=== PATIENT | male | born 1980 | race Caucasian/White ===

== ENCOUNTER → 2018-02-26 10:36 | Outpatient (REF) | payer MEDICAID, SELFPAY ==
[2018-02-26 12:00] LABS: ALT 35 U/L (12-78); AST 29 U/L (15-37); Albumin 3.8 g/dL (3.4-5.0); Alkaline Phosphatase 89 U/L (46-116); Anion Gap 9.3 mmol/L (3-11); BUN 23 mg/dL (7-18); Bilirubin, Total 0.4 mg/dL (0.2-1.0); CO2 26.7 mmol/L (21.0-32.0); CREATININE 1.33 mg/dL (0.70-1.30); Chloride 101 mmol/L (98-107); Glucose 117 mg/dL (70-100); Potassium 4.5 mmol/L (3.5-5.1); Sodium 137 mmol/L (136-145); Total Protein 7.7 g/dL (6.4-8.2)
[2018-03-02 16:17] LABS: Testosterone, Free 7.38 ng/dL (4.65-18.1); Testosterone, Total 321 ng/dL (240-950)
== END ==
LOC: NCHCN 10:36
PROVIDERS: PCP Family Medicine; Visit Provider Family Medicine
DX: E29.1 Testicular hypofunction (principal); R61 Generalized hyperhidrosis
CPT/HCPCS: 80053; 84402; 84403

== ENCOUNTER 2018-12-01 15:37 | Emergency (ER) | payer MEDICAID, SELFPAY ==
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
[2018-12-01 15:55] VITALS: BP 143/85; PULSE 90; RESP 30; O2SAT 94
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
[2018-12-01 16:09] LABS: Absolute Basophil Count 0.08 k/cumm (0.0-0.2); Absolute Eosinophil Count 0.28 k/cumm (0.0-0.7); Absolute Lymphocyte Count 3.57 k/cumm (1.2-3.4); Absolute Monocyte Count 1.64 k/cumm (0.11-0.7); Absolute Neutrophil Count 10.07 k/cumm (1.2-6.7); Basophils % 0.5; Eosinophils % 1.8; HCT 40.7 % (40.0-50.0); HGB 14.1 g/dL (13.5-17.5); Immature Grans % 0.6; Lymphocytes % 22.7; Mean Corp. HGB Concentration 34.6 g/dL (32.0-36.0); Mean Corpuscular Hemoglobin 32.2 pg (27.0-33.0); Mean Corpuscular Volume 92.9 fL (80-95); Mean Platelet Volume 9.4 fL (8.0-11.0); Monocytes % 10.4; Platelet Count 327 x1000/uL (130-400); RBC 4.38 m/cumm (4.50-6.00); RBC Distribution Width 13.8 % (11.8-14.1); White Blood Cell Count 15.74 k/cumm (4.4-10.8)
[2018-12-01 16:24] LABS: ALT 36 U/L (12-78); AST 34 U/L (15-37); Albumin 3.4 g/dL (3.4-5.0); Alkaline Phosphatase 66 U/L (46-116); Anion Gap 8.4 mmol/L (3-11); BUN 11 mg/dL (7-18); Bilirubin, Total 0.2 mg/dL (0.2-1.0); CO2 26.6 mmol/L (21.0-32.0); Calcium 8.6 mg/dL (8.5-10.1); Chloride 106 mmol/L (98-107); Glucose 81 mg/dL (70-100); Potassium 3.7 mmol/L (3.5-5.1); Sodium 141 mmol/L (136-145); Total Protein 6.9 g/dL (6.4-8.2)
[2018-12-01 16:25] LABS: INR 1.7 (0.9-1.1); Prothrombin Time 17.1 sec (9.3-11.0)
[2018-12-01 16:28] LABS: Diff Comment Diff Reviewed
[2018-12-01 16:29] LABS: Acanthocytes 1+; Polychromasia Present
[2018-12-01 16:30] VITALS: BP 146/81; PULSE 93; O2SAT 94
[2018-12-01] MEDS: Omnipaque 350 MG/ML 100 ML BTL IJ (16:41)
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
[2018-12-01 18:07] LABS: Bilirubin Negative (Negative); Blood Trace-lysed (Negative); Clarity Clear; Glucose Negative (Negative); Ketones Negative (Negative); Leukocyte Esterase Negative (Negative); Nitrite Negative (Negative); Urobilinogen 0.2 EU/dL (Up TO 0.2); pH 5.5 (5-8)
[2018-12-01 18:17] LABS: Bacteria Negative HPF (Negative); C & S Indicated? No; Casts Negative LPF (Negative); Crystals Negative HPF (Negative); Epithelial Cells Rare HPF (Negative); Mucus Negative (Negative); WBC Negative HPF (0-5)
== END 2018-12-01 21:30 | disposition home or self-care (01) ==
PROVIDERS: Emergency Provider Student in an Organized Health Care Education/Training Program; PCP Family Medicine
DX: S19.9XXA Unspecified injury of neck, initial encounter (principal); S20.212A Contusion of left front wall of thorax, initial encounter; F10.120 Alcohol abuse with intoxication, uncomplicated; S60.052A Contusion of left little finger without damage to nail, initial encounter; Z79.01 Long term (current) use of anticoagulants; Z95.2 Presence of prosthetic heart valve
CPT/HCPCS: 36415; 70498; 80053; 86850; 86900; 86901; 90471; 93005; 99285; 70450; 71046; 71100; 73140; 81003; 81015; 85025; 85610; 93010; 99284; J3490; L0172

== ENCOUNTER 2019-01-20 17:09 | Emergency (ER) | payer MEDICAID, SELFPAY ==
[2019-01-20] VITALS (19 sets, daily range): BP systolic 95–125; BP diastolic 47–76; PULSE 86–114; RESP 16–38; TEMP 38.1; O2SAT 88–95
--- NOTE | 2019-01-20 17:25 | DI.RAD_ITS ---
SYMPTOM/DIAGNOSIS: ? ASPIRATION, HYPOXIA, RHONCHI PORTABLE AP CHEST: The lungs are free of infiltrate. The heart is not enlarged. The hilar structures, mediastinum and tracheal air column are intact. SUMMARY: No evidence of acute cardiopulmonary disease.
[2019-01-20] MEDS: ACETAMINOPHEN 1,000 MG/100 ML BTL 400 MG IVPB (17:40)
[2019-01-20] MEDS: Normal Saline 1,000 ML 1000 ML IV (17:51)
--- NOTE | 2019-01-20 18:03 | W.ED.GENAD ---
Discharge Plan Disposition Patient Disposition: AGAINST MEDICAL ADVICE Condition: Poor Discharge Details Chief Complaint: OD/Poison Clinical Impression: History of drug abuse, Accidental heroin overdose, Hypoxemia Primary Care Provider: Radha Tracey ED Provider: Wil Gonzalez Home Meds and New Rx's Prescriptions: No Action warfarin 10 MG tablet 15 mg PO DAILY RF: 0 sertraline 100 MG tablet 100 mg PO DAILY RF: 0 gabapentin 300 MG capsule 900 mg PO TID RF: 0 albuterol sulfate [ProAir HFA] 200 PUFF/INH HFA aerosol inhaler 2 puff Inhalation Q4H PRN PRNQty: 1 RF: 0 Narcan 4 MG spray,non-aerosol 4 mg NS DIRECTED Qty: 2 RF: 0 albuterol sulfate [Ventolin HFA] 200 PUFF HFA aerosol inhaler 2 inh Inhalation Q4H PRN PRNRF: 0 buprenorphine-naloxone [Suboxone] 4-1 mg Film 4 film Sublingual DAILY AM RF: 0 Discharge Data Discharge Date/Time-TO BE ENTERED AT DEPARTURE: 01/20/19 18:54 Medical Decision Making This is a 38-year-old male with extensive past medical history of drug abuse, pulmonary emboli, 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 He has had cough chills over the last 2 days, he overdosed today on heroin, this was unintentional, and he denies any suicidal ideations, required 8 of Narcan to come back, lowest O2 was 60%. Eventually came back with [id number], lung sounds are notably rhonchorous, concern for aspiration pneumonia. The patient is febrile, tachycardic. He does smell intoxicated and is certainly acting intoxicated. Exam demonstrates no focal neurologic deficit, rhonchorous breath sounds, hypoxia and tachycardia with fever. We will start broad-spectrum antibiotics. He does complain of mild left arm weakness, however he is notably noncompliant with exam secondary to his current mood and disposition. He refuses to perform my complete neurologic exam even though he does demonstrate movement of his extremities and when flailing about or pointing at nursing staff. We will get a CT scan of the head, CTA of the chest, start broad-spectrum antibiotics, rehydrate, maintain oxygen. 8 PM Fortunately the patient has left AGAINST MEDICAL ADVICE. While I was in another patient's room performing a sterile procedure the patient upon himself to remove his IVs, and leave. Multiple steps of reasoning and redirection were attempted by nursing staff as well as Jyoti Waterman, however the patient made it exquisitely clear to them that he would not be staying, he needed to leave immediately. He did not give a clear answer why. At time of patient leaving, he clinically appears sober with no clinical signs of intoxication per nursing staff at that time. After I did complete my procedure I was informed that the patient had left, we did attempt to contact the patient however all attempt to contact were answered. Prior to the patient leaving we did demonstrate her recorded vital signs of notable improvement of his oxygenation. And her nursing staff did assist the patient immediately prior to when he left he had noted a significant improvement in his respiratory status. Showed no signs of significant confusion or altered mental status per nursing staff. EKG 7: 24 Rate 102, HI 220 with a first-degree AV block, QTc 443, sinus tachycardia, QRS 90. No significant ST elevations or depressions, no significant T wave inversions. No Q waves. HPI General Date/Time Provider Initiated Documentation: 01/20/19 17:23. HPI Narrative: This is a 38-year-old male with an extensive past medical history of drug use, DIC, endocarditis, brain abscesses, septic arterial emboli, on chronic Coumadin, cardiac valve replacement secondary to endocarditis, who presents today for evaluation of overdose, difficulty breathing. Patient states that over the last few days he has had cough, shortness of breath, today he overdosed on heroin, bystanders and medical staff were giving him bag valve respirations, he was initially given 4 by fire and police, and then an additional 4 by EMS staff for a total of 8. He eventually woke up, and had return to mentation and breathing. Patient also does admit to significant alcohol intake recently. He admits to mild chest pain with associated shortness of breath. He did admit to vomiting earlier today and last night. EMS does note rhonchorous breath sounds. Initial O2 was 60% in the field, however he is currently at 98% on 15 L. Patient is a notably poor historian, and is confrontational with nursing staff. He has no other complaints at this time though. Related Data Home Medications Medication Instructions Recorded Confirmed warfarin 15 mg PO DAILY 02/16/16 01/20/19 gabapentin 900 mg PO TID 04/02/16 01/20/19 sertraline 100 mg PO DAILY 04/02/16 01/20/19 albuterol sulfate [Ventolin HFA] 2 inh INHALATION Q4H PRN PRN 06/24/16 01/20/19 albuterol sulfate [ProAir HFA] 2 puff INHALATION Q4H PRN PRN #1 01/03/18 01/20/19 inh Narcan 4 mg NS DIRECTED #2 spray 01/13/18 01/20/19 buprenorphine-naloxone [Suboxone] 4 film SUBLINGUAL DAILY AM 12/01/18 01/20/19 Previous Rx's Medication Instructions Recorded albuterol sulfate [ProAir HFA] 2 puff INHALATION Q4H PRN PRN #1 01/03/18 inh Narcan 4 mg NS DIRECTED #2 spray 01/13/18 Allergies Allergy/AdvReac Type Severity Reaction Status Date / Time Penicillins Allergy Unknown tolerating Unverified 12/01/18 16:32 Oxacillin this admission 06/24/16 per latex Allergy Unverified 12/01/18 16:32 General Stated Complaint: OD/Poison JEREMIAS: 2 Review of Systems Review of Systems All systems reviewed & are unremarkable except as noted in HPI and below PFSH Social History Smoking/Tobacco Use Status: Current every day Tobacco Type: cigarettes Alcohol Intake: current Alcohol Intake frequency: 0-2 drinks per day Drug use: Daily Substance use type: opiates Details: pt ran out of antibuse and drank today Do you feel safe at home: Yes Do you feel safe in your relationship?: Yes Exam Narrative Exam Narrative: 1.Const: Well-nourished, Well-developed, appearing stated age 2.Eyes: PERRL, no conjunctival injection, and symmetrical lids. 3.ENT: Atraumatic external nose and ears. Moist MM. Neck: Symmetric, trachea midline, No thyromegaly. Patient demonstrates good movement of cervical neck. There is no nuchal rigidity, no nuchal tenderness. Patient is able to flex the neck without any difficulty or significant pain. Negative Kernig's and Brudzinski sign. 4.CVS: +S1/S2, mild murmur is notably auscultate peripheral pulses 2+ and equal in all extremities. Brisk capillary refill in all extremities. 5.RESP: Rhonchorous breath sounds, no wheezes, crackles in the bases and midlung neal 6.GI: Soft, Nontender/Nondistended, No hepatosplenomegaly. No guarding or rebound. 7.MSK: Normocephalic/Atraumatic, Extremities w/o deformity or ttp No cyanosis or clubbing, Normal movement of all extremities 8.Skin: Warm, Dry. No rashes or lesions. No Osler nodes or Janeway lesions. 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 Sensation grossly intact, no focal neurologic deficits. Patient moves all extremities without any significant difficulty. Exam is complicated secondary to the patient's intoxication and confrontational component coupled with his refusal to perform requested exam movements secondary to personal wishes. Observing the patient from a distance so he appears to use all upper and lower extremities well. He demonstrates good indirect sales representative of the bed handles bilaterally. He shows no facial droop. 10.Psych: (AAO) x3. Mildly intoxicated Course Vital Signs Respiratory Rate 21 01/20/19 17:12 Pulse Oximetry 88 L 01/20/19 17:12 Temperature 38.1 C H 01/20/19 17:17 Temperature Source Tympanic 01/20/19 17:17 Pulse 99 H 01/20/19 17:46 Pulse 104 H 01/20/19 17:46 Respiratory Rate 20 01/20/19 17:46 Respiratory Effort Labored 01/20/19 17:23 Respiratory Depth Shallow 01/20/19 17:23 Respiratory Pattern Tachypnea 01/20/19 17:23 Blood Pressure 95/47 L 01/20/19 17:46 Blood Pressure Mean 59 01/20/19 17:46 Pulse Oximetry 91 L 01/20/19 17:46 Oxygen Delivery Method Hi Flow System 01/20/19 17:43 Oxygen Flow Rate 40 01/20/19 17:43 Fraction of Inspired Oxygen (FIO2) 46 01/20/19 17:43 Pain Level 0 01/20/19 17:17 Comment 01/20/19 17:43 Lab/Test Results Lab/Test Results: 01/20/19 17:25 Blood Blood Culture - Pending 01/20/19 17:25 Blood Blood Culture - Pending
[2019-01-20 18:12] LABS: BE -0.7 mmol/L (-3-3); HCO3 25 mmol/L (22-28); pCO2 43 mmHg (34-47); pH 7.37 (7.35-7.45); pO2 65 mmHg (83-108); sO2 94 % (94-98); tCO2 22 mmol/L (22-29)
[2019-01-20 18:13] LABS: Site Right Radial
[2019-01-20 18:14] LABS: FIO2 36 %
--- NOTE | 2019-01-20 18:15 | ED.GENADUL_ITS ---
Discharge Plan Disposition Patient Disposition: AGAINST MEDICAL ADVICE Condition: Poor Discharge Details Chief Complaint: OD/Poison Clinical Impression: History of drug abuse, Accidental heroin overdose, Hypoxemia Primary Care Provider: Radha Tracey ED Provider: Wil Gonzalez Home Meds and New Rx's Prescriptions: No Action warfarin 10 MG tablet 15 mg PO DAILY RF: 0 sertraline 100 MG tablet 100 mg PO DAILY RF: 0 gabapentin 300 MG capsule 900 mg PO TID RF: 0 albuterol sulfate [ProAir HFA] 200 PUFF/INH HFA aerosol inhaler 2 puff Inhalation Q4H PRN PRNQty: 1 RF: 0 Narcan 4 MG spray,non-aerosol 4 mg NS DIRECTED Qty: 2 RF: 0 albuterol sulfate [Ventolin HFA] 200 PUFF HFA aerosol inhaler 2 inh Inhalation Q4H PRN PRNRF: 0 buprenorphine-naloxone [Suboxone] 4-1 mg Film 4 film Sublingual DAILY AM RF: 0 Discharge Data Discharge Date/Time-TO BE ENTERED AT DEPARTURE: 01/20/19 18:54 Medical Decision Making This is a 38-year-old male with extensive past medical history of drug abuse, pulmonary emboli, 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 He has had cough chills over the last 2 days, he overdosed today on heroin, this was unintentional, and he denies any suicidal ideations, required 8 of Narcan to come back, lowest O2 was 60%. Eventually came back with [id number], lung sounds are notably rhonchorous, concern for aspiration pneumonia. The patient is febrile, tachycardic. He does smell intoxicated and is certainly acting intoxicated. Exam demonstrates no focal neurologic deficit, rhonchorous breath sounds, hypoxia and tachycardia with fever. We will start broad-spectrum antibiotics. He does complain of mild left arm weakness, however he is notably noncompliant with exam secondary to his current mood and disposition. He refuses to perform my complete neurologic exam even though he does demonstrate movement of his extremities and when flailing about or pointing at nursing staff. We will get a CT scan of the head, CTA of the chest, start broad- spectrum antibiotics, rehydrate, maintain oxygen. 8 PM Fortunately the patient has left AGAINST MEDICAL ADVICE. While I was in another patient's room performing a sterile procedure the patient upon himself to remove his IVs, and leave. Multiple steps of reasoning and redirection were attempted by nursing staff as well as Jyoti Waterman, however the patient made it exquisitely clear to them that he would not be staying, he needed to leave immediately. He did not give a clear answer why. At time of patient leaving, he clinically appears sober with no clinical signs of intoxication per nursing staff at that time. After I did complete my procedure I was informed that the patient had left, we did attempt to contact the patient however all attempt to contact were answered. Prior to the patient leaving we did demonstrate her recorded vital signs of notable improvement of his oxygenation. And her nursing staff did assist the patient immediately prior to when he left he had noted a significant improvement in his respiratory status. Showed no signs of significant confusion or altered mental status per nursing staff. EKG 7: 24 Rate 102, CO 220 with a first-degree AV block, QTc 443, sinus tachycardia, QRS 90. No significant ST elevations or depressions, no significant T wave inversions. No Q waves. HPI General Date/Time Provider Initiated Documentation: 01/20/19 17:23 . HPI Narrative: This is a 38-year-old male with an extensive past medical history of drug use, DIC, endocarditis, brain abscesses, septic arterial emboli, on chronic Coumadin, cardiac valve replacement secondary to endocarditis, who presents today for evaluation of overdose, difficulty breathing. Patient states that over the last few days he has had cough, shortness of breath, today he overdosed on heroin, bystanders and medical staff were giving him bag valve respirations, he was initially given 4 by fire and police, and then an additional 4 by EMS staff for a total of 8. He eventually woke up, and had return to mentation and breathing. Patient also does admit to significant alcohol intake recently. He admits to mild chest pain with associated shortness of breath. He did admit to vomiting earlier today and last night. EMS does note rhonchorous breath sounds. Initial O2 was 60% in the field, however he is currently at 98% on 15 L. Patient is a notably poor historian, and is confrontational with nursing staff. He has no other complaints at this time though. Related Data Home Medications Medication Instructions Recorded Confirmed warfarin 15 mg PO DAILY 02/16/16 01/20/19 gabapentin 900 mg PO TID 04/02/16 01/20/19 sertraline 100 mg PO DAILY 04/02/16 01/20/19 albuterol sulfate [Ventolin HFA] 2 inh INHALATION Q4H PRN PRN 06/24/16 01/20/19 albuterol sulfate [ProAir HFA] 2 puff INHALATION Q4H PRN PRN #1 01/03/18 01/20/19 inh Narcan 4 mg NS DIRECTED #2 spray 01/13/18 01/20/19 buprenorphine-naloxone [Suboxone] 4 film SUBLINGUAL DAILY AM 12/01/18 01/20/19 Previous Rx's Medication Instructions Recorded albuterol sulfate [ProAir HFA] 2 puff INHALATION Q4H PRN PRN #1 01/03/18 inh Narcan 4 mg NS DIRECTED #2 spray 01/13/18 Allergies Allergy/AdvReac Type Severity Reaction Status Date / Time Penicillins Allergy Unknown tolerating Unverified 12/01/18 16:32 Oxacillin this admission 06/24/16 per latex Allergy Unverified 12/01/18 16:32 General Stated Complaint: OD/Poison JEREMIAS: 2 Review of Systems Review of Systems All systems reviewed & are unremarkable except as noted in HPI and below PFSH Social History Smoking/Tobacco Use Status: Current every day Tobacco Type: cigarettes Alcohol Intake: current Alcohol Intake frequency: 0-2 drinks per day Drug use: Daily Substance use type: opiates Details: pt ran out of antibuse and drank today Do you feel safe at home: Yes Do you feel safe in your relationship?: Yes Exam Narrative Exam Narrative: 1.Const: Well-nourished, Well-developed, appearing stated age 2.Eyes: PERRL, no conjunctival injection, and symmetrical lids. 3.ENT: Atraumatic external nose and ears. Moist MM. Neck: Symmetric, trachea midline, No thyromegaly. Patient demonstrates good movement of cervical neck. There is no nuchal rigidity, no nuchal tenderness. Patient is able to flex the neck without any difficulty or significant pain. Negative Kernig's and Brudzinski sign. 4.CVS: +S1/S2, mild murmur is notably auscultate peripheral pulses 2+ and equal in all extremities. Brisk capillary refill in all extremities. 5.RESP: Rhonchorous breath sounds, no wheezes, crackles in the bases and midlung neal 6.GI: Soft, Nontender/Nondistended, No hepatosplenomegaly. No guarding or rebound. 7.MSK: Normocephalic/Atraumatic, Extremities w/o deformity or ttp No cyanosis or clubbing, Normal movement of all extremities 8.Skin: Warm, Dry. No rashes or lesions. No Osler nodes or Janeway lesions. 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 Sensation grossly intact, no focal neurologic deficits. Patient moves all extremities without any significant difficulty. Exam is complicated secondary to the patient's intoxication and confrontational component coupled with his refusal to perform requested exam movements secondary to personal wishes. Observing the patient from a distance so he appears to use all upper and lower extremities well. He demonstrates good meat and seafood manager of the bed handles bilaterally. He shows no facial droop. 10.Psych: (AAO) x3. Mildly intoxicated Course Vital Signs Respiratory Rate 21 01/20/19 17:12 Pulse Oximetry 88 L 01/20/19 17:12 Temperature 38.1 C H 01/20/19 17:17 Temperature Source Tympanic 01/20/19 17:17 Pulse 99 H 01/20/19 17:46 Pulse 104 H 01/20/19 17:46 Respiratory Rate 20 01/20/19 17:46 Respiratory Effort Labored 01/20/19 17:23 Respiratory Depth Shallow 01/20/19 17:23 Respiratory Pattern Tachypnea 01/20/19 17:23 Blood Pressure 95/47 L 01/20/19 17:46 Blood Pressure Mean 59 01/20/19 17:46 Pulse Oximetry 91 L 01/20/19 17:46 Oxygen Delivery Method Hi Flow System 01/20/19 17:43 Oxygen Flow Rate 40 01/20/19 17:43 Fraction of Inspired Oxygen (FIO2) 46 01/20/19 17:43 Pain Level 0 01/20/19 17:17 Comment 01/20/19 17:43 Lab/Test Results Lab/Test Results: 01/20/19 17:25 Blood Blood Culture - Pending 01/20/19 17:25 Blood Blood Culture - Pending
[2019-01-20 18:21] LABS: Lactate-non-spesis 1.6 mmol/l (0.6-1.4)
--- NOTE | 2019-01-20 18:22 | DI.VRAD_ITS ---
EXAM: XR Chest, 1 View EXAM DATE/TIME: 01/20/2019 5:27 PM CLINICAL HISTORY: 38 years old, male; Cough TECHNIQUE: Imaging protocol: XR of the chest, 1 view. COMPARISON: CR CHEST 2 VIEWS PA,LAT 01/03/2018 7:36 AM FINDINGS: Lungs: Unremarkable. No consolidation. Pleural space: Unremarkable. No pleural effusion. No pneumothorax. Heart/Mediastinum: See Bones/joints Finding. Bones/joints: Sternotomy. Cardiac valve replacement. IMPRESSION: No acute finding. No infiltrates Dictated and Authenticated by: Savanah Fierro MD. Ordering:SUSAN De La Torre MD
[2019-01-20 18:23] LABS: Abs Immature Grans 0.07 k/cumm (0.0-0.09); Absolute Basophil Count 0.07 k/cumm (0.0-0.2); Absolute Lymphocyte Count 2.25 k/cumm (1.2-3.4); Absolute Monocyte Count 1.81 k/cumm (0.11-0.7); Basophils % 0.4; Eosinophils % 0.6; HCT 41.9 % (40.0-50.0); HGB 14.3 g/dL (13.5-17.5); Immature Grans % 0.4; Lymphocytes % 13.8; Mean Corp. HGB Concentration 34.1 g/dL (32.0-36.0); Mean Corpuscular Hemoglobin 32.2 pg (27.0-33.0); Mean Corpuscular Volume 94.4 fL (80-95); Mean Platelet Volume 9.8 fL (8.0-11.0); Monocytes % 11.1; Neutrophils % 73.7; Platelet Count 370 x1000/uL (130-400); RBC 4.44 m/cumm (4.50-6.00); RBC Distribution Width 14.8 % (11.8-14.1); White Blood Cell Count 16.33 k/cumm (4.4-10.8)
[2019-01-20 18:25] LABS: Absolute Neutrophil Count 12.04 k/cumm (1.2-6.7)
--- NOTE | 2019-01-20 18:32 | NUR.NOTE ---
Nursing Note: Pt moving around and pulled the IV from his R hand. cath intact bleeding controlled with pressure bandage.
[2019-01-20] MEDS: levoFLOXacin 750 MG/150 ML BAG 100 MG IVPB (18:35)
[2019-01-20 18:37] LABS: ALT 46 U/L (12-78); AST 47 U/L (15-37); Albumin 3.3 g/dL (3.4-5.0); Alkaline Phosphatase 95 U/L (46-116); Anion Gap 8.4 mmol/L (3-11); BUN 7 mg/dL (7-18); Bilirubin, Total 0.3 mg/dL (0.2-1.0); CO2 26.6 mmol/L (21.0-32.0); CREATININE 1.13 mg/dL (0.70-1.30); Calcium 8.4 mg/dL (8.5-10.1); Chloride 105 mmol/L (98-107); ETHANOL BLOOD 93.1 mg/dL (<3); Glucose 132 mg/dL (70-100); Potassium 3.8 mmol/L (3.5-5.1); Sodium 140 mmol/L (136-145); Total Protein 7.5 g/dL (6.4-8.2)
[2019-01-20 18:38] LABS: Troponin I < 0.05 ng/mL (0.00-0.06)
[2019-01-20 18:45] LABS: TSH (W/Ref FT4) 2.03 uIU/mL (0.358-3.74)
[2019-01-20 18:51] LABS: Diff Comment Diff Reviewed; RBC Morphology Normal
[2019-01-20 18:55] LABS: PTT Activated 38.1 sec (21.0-31.4); Prothrombin Time 23.7 sec (9.3-11.0)
[2019-01-20 18:56] LABS: INR 2.3 (0.9-1.1)
[2019-01-20 18:58] LABS: Acetaminophen 13 ug/mL (10-30); Salicylate 3.6 mg/dL (2.8-20.0)
== END 2019-01-20 18:54 | disposition left against medical advice (07) ==
LOC: ER 18:58
PROVIDERS: Emergency Provider Student in an Organized Health Care Education/Training Program; PCP Family Medicine
DX: T40.1X1A Poisoning by heroin, accidental (unintentional), initial encounter (principal); R09.02 Hypoxemia; F11.188 Opioid abuse with other opioid-induced disorder; F10.129 Alcohol abuse with intoxication, unspecified; Y90.4 Blood alcohol level of 80-99 mg/100 ml; Z86.711 Personal history of pulmonary embolism; Z79.01 Long term (current) use of anticoagulants; Z53.29 Procedure and treatment not carried out because of patient's decision for other reasons; Z95.2 Presence of prosthetic heart valve; I38 Endocarditis, valve unspecified
CPT/HCPCS: 36415; 80053; 80307; 82805; 87040; 93005; 96361; 96365; 96367; 99285; 36600; 71045; 80320; 80329; 81003; 83605; 84443; 84484; 85025; 85610; 85730; 87086; 93010; J0131; J1956

== ENCOUNTER 2019-02-06 01:16 | Outpatient (CLI) | payer MEDICAID, SELFPAY ==
--- NOTE | 2019-02-06 08:11 | DI.RAD_ITS ---
SYMPTOM/DIAGNOSIS: LT JOINT HAND PAIN, M79.642 LEFT HAND: Three views. Comparison examination is 12/01/18 No acute fracture or dislocation is seen. There is a small osteophyte present at the head of the first metacarpal. The joint spaces are otherwise well maintained. There is again seen dystrophic calcification posterior to the distal interphalangeal joint of the left 5th finger. This is unchanged compared to prior examination. No suspicious lytic or sclerotic lesions are seen. The soft tissues are unremarkable. IMPRESSION: Mild arthritic changes of the left hand.
== END 2019-02-06 01:36 ==
PROVIDERS: PCP Family Medicine; Visit Provider Family Medicine
DX: M79.642 Pain in left hand (principal); M19.042 Primary osteoarthritis, left hand
CPT/HCPCS: 73130

== ENCOUNTER 2019-02-11 00:38 | Outpatient (CLI) | payer MEDICAID, SELFPAY ==
--- NOTE | 2019-02-11 07:30 | MERGE_ITS ---
*[facility]* *[facility]* [address] [place] [address] Date of study: 02/11/2019 Transthoracic Echocardiography M-mode, complete 2D, complete spectral Doppler, and color Doppler *STUDY CONCLUSIONS* Impressions: Excellent prosthetic valve function without evidence for perivalvular leak. Summary: 1. Left ventricle: The cavity size was normal. Wall thickness was increased in a pattern of mild LVH. Systolic function was at the lower limits of normal. The estimated ejection fraction was 50-55%. Wall motion was normal; there were no regional wall motion abnormalities. 2. Mitral valve: A mechanical prosthesis was present and functioning normally. Mean gradient (D): 4.4mmHg at 44 bpm. 3. Left atrium: The atrium was moderately dilated. 4. Right ventricle: The cavity size was normal. Wall thickness was normal. Systolic function was normal. 5. Pulmonary arteries: Pulmonary systolic pressure was increased, in the range of 40mm Hg to 45mm Hg. *PATIENT PRESENTATION* Height: 172.7cm (68in ) S/D Pressure: 138 / 80 Weight: 89.8kg (197.6lb ) BSA: 2.1m^2 Test start time: 07:40 AM. Test stop time: 08:40 AM. PERFORMING Unknown CONSULTING Radha Tracey ORDERING Radha Tracey REFERRING Radha Tracey PERFORMING [facility] TELEPHONE LINEMAN RT Mitch (R)(CT), ELIF *PROCEDURE DATA* Procedure information: The patient was identified by two identifiers. This study was interpreted by [facility]. Pertinent images and digital data are archived for permanent storage and are available for subsequent review. Comparison was made to the study of 06/25/2017. Study status: Routine. Transthoracic echocardiography. M-mode, complete 2D, complete spectral Doppler, and color Doppler. A Transthoracic Echocardiogram was performed. Scanning was performed from the parasternal, apical, subcostal, and suprasternal notch acoustic windows. Images were obtained using an [id number] cardiac ultrasound machine. Image quality was adequate. Study completion: The patient tolerated the procedure well. There were no complications. History: PMH: Aortic valve replacement. Z95.2 presence of prosthetic heart valve. *CARDIAC ANATOMY* Left ventricle: The cavity size was normal. Wall thickness was increased in a pattern of mild LVH. Systolic function was at the lower limits of normal. The estimated ejection fraction was 50-55%. Wall motion was normal; there were no regional wall motion abnormalities. The study is not technically sufficient to allow evaluation of LV diastolic function. Aortic valve: Trileaflet; normal thickness leaflets. Mobility was not restricted. Doppler: Transvalvular velocity was within the normal range. There was no stenosis. There was no significant regurgitation. VTI ratio of LVOT to aortic valve: 0.68. Valve area (VTI): 2.2cm^2. Indexed valve area (VTI): 1.1cm^2/m^2. Peak velocity ratio of LVOT to aortic valve: 0.69. Valve area (Vmax): 2.2cm^2. Indexed valve area (Vmax): 1.1cm^2/m^2. Mean velocity ratio of LVOT to aortic valve: 0.72. Valve area (Vmean): 2.3cm^2. Indexed valve area (Vmean): 1.1cm^2/m^2. Mean gradient (S): 5.2mm Hg. Peak gradient (S): 9.8mm Hg. Aorta: Aortic root: The aortic root was normal in size. Ascending aorta: The ascending aorta was normal in size. Mitral valve: A mechanical prosthesis was present and functioning normally. Mobility was not restricted. Doppler: Transvalvular velocity was within the normal range. There was no evidence for stenosis. There was no significant regurgitation. Valve area by pressure half-time: 1.9cm^2. Indexed valve area by pressure half-time: 0.9cm^2/m^2. Mean gradient (D): 4.4mmHg at 44 bpm. Peak gradient (D): 10.3mm Hg. Left atrium: The atrium was moderately dilated. Right ventricle: The cavity size was normal. Wall thickness was normal. Systolic function was normal. Pulmonic valve: Doppler: Transvalvular velocity was within the normal range. There was no evidence for stenosis. There was no significant regurgitation. Peak gradient (S): 6mm Hg. Tricuspid valve: Structurally normal valve. Doppler: Transvalvular velocity was within the normal range. There was no evidence for stenosis. There was trivial regurgitation. Pulmonary artery: Pulmonary systolic pressure was increased, in the range of 40mm Hg to 45mm Hg. Right atrium: The atrium was normal in size. Pericardium: There was no pericardial effusion. Systemic veins: Inferior vena cava: Well visualized. The vessel was patent and normal in size. The respirophasic diameter changes were in the normal range (greater than or equal to 50%). Baseline ECG: Bradycardia. Measurements Left ventricle Value Reference LV ID, ED, PLAX 5.6 cm 3.5 - 6.0 LV ID, ES, PLAX (H) 4.3 cm 2.1 - 4.0 LV PW thickness, ED, PLAX 1.3 cm LV end-diastolic volume, 1-p A2C 116 ml LV ejection fraction, 1-p A2C 58 % LV end-diastolic volume, 1-p A4C 95 ml LV ejection fraction, 1-p A4C 51 % LV e', lateral 0.069 m/sec LV E/e', lateral 23 LV e', medial 0.057 m/sec LV E/e', medial 28 LV e', average 0.063 m/sec LV E/e', average 25 Ventricular septum Value Reference IVS thickness, ED, PLAX 1.1 cm LVOT Value Reference LVOT ID, A-P 2.0 cm LVOT area 3.2 cm^2 LVOT peak velocity, S 1.08 m/sec LVOT mean velocity, S 0.78 m/sec LVOT VTI, S 23.2 cm LVOT peak gradient, S 4.7 mm Hg LVOT mean gradient, S 2.8 mm Hg Stroke volume (SV), LVOT DP 75 ml Stroke index (SV/bsa), LVOT DP 36 ml/m^2 Aortic valve Value Reference Aortic valve peak velocity, S 1.6 m/sec Aortic valve mean velocity, S 1.1 m/sec Aortic valve VTI, S 34.0 cm Aortic mean gradient, S 5.2 mm Hg Aortic peak gradient, S 9.8 mm Hg VTI ratio, LVOT/AV 0.68 Aortic valve area, VTI 2.2 cm^2 Velocity ratio, peak, LVOT/AV 0.69 Aortic valve area, peak velocity 2.2 cm^2 Velocity ratio, mean, LVOT/AV 0.72 Aortic valve area, mean velocity 2.3 cm^2 Aortic valve area/bsa, mean velocity 1.1 cm^2/m^2 Aorta Value Reference Aortic root ID, ED 3.2 cm Ascending aorta ID, A-P, S 3.2 cm Left atrium Value Reference LA ID, A-P, ES 4.0 cm LA ID/bsa, A-P 1.9 cm/m^2 <=2.2 LA volume/bsa, ES, 1-p A4C 43 ml/m^2 LA volume, ES, 2-p 91 ml LA volume/bsa, ES, 2-p 43 ml/m^2 LA/aortic root ratio 1.25 Mitral valve Value Reference Mitral E-wave peak velocity 1.6 m/sec Mitral A-wave peak velocity 1.23 m/sec Mitral deceleration time (H) 406 ms 150 - 230 Mitral pressure half-time 118 ms Mitral mean gradient, D 4.1 mm Hg Mitral peak gradient, D 10.3 mm Hg Mitral E/A ratio, peak 1.31 Mitral valve area, PHT, DP 1.9 cm^2 Tricuspid valve Value Reference Tricuspid regurg peak velocity 3 m/sec Tricuspid peak RV-RA gradient 35.6 mm Hg Right atrium Value Reference RA area, ES, A4C 18.7 cm^2 8.3 - 19.5 Pulmonic valve Value Reference Pulmonic peak gradient, S 6 mm Hg Legend: (L) and (H) gold values outside specified reference range. I have personally reviewed the images and have reviewed and edited the reported findings. Electronically signed by Dillon Crenshaw 02/11/2019 09:23
== END 2019-02-11 00:58 ==
PROVIDERS: PCP Family Medicine; Visit Provider Family Medicine
DX: Z95.2 Presence of prosthetic heart valve (principal); I10 Essential (primary) hypertension
CPT/HCPCS: 93306

== ENCOUNTER 2020-03-30 13:39 | Outpatient (REF) | payer MEDICAID, SELFPAY ==
[2020-04-02 07:45] LABS: Patient Race White; SARS-CoV-2 RNA Undetected (Undetected); SARS-CoV-2 Specimen Source Nasopharynx
== END 2020-03-30 13:59 ==
LOC: NCHCN 13:39
PROVIDERS: PCP Family Medicine; Visit Provider Family Medicine
DX: Z20.828 Contact with and (suspected) exposure to other viral communicable diseases (principal); Z59.0 Homelessness
CPT/HCPCS: U0003

== ENCOUNTER 2020-04-08 09:28 | Emergency (ER) | payer MEDICAID, SELFPAY ==
[2020-04-08 09:29] VITALS: RESP 14
--- NOTE | 2020-04-08 09:30 | RT.EKG_ITS ---
APPROVED REPORT Exam: Resting ECG Patient Location: E HR:77 bpm ECG Measurements Heart Rate 77 AXIS IA 253 P 47 QRSd 87 QRS 30 QT 391 T 44 QTc 442 Conclusion Sinus rhythm...normal P axis, Prolonged IA interval. Probable left atrial enlargement.. Probable left ventricular hypertrophy...multiple LVH criteria
--- NOTE | 2020-04-08 09:38 | W.ED.GENAD ---
Discharge Plan Disposition Patient Disposition: AGAINST MEDICAL ADVICE Condition: Improving Discharge Details Clinical Impression: Left against medical advice Primary Care Provider: Radha Tracey ED Provider: Balaji French Home Meds and New Rx's Prescriptions: Continued warfarin 10 MG tablet 15 mg PO DAILY RF: 0 sertraline 100 MG tablet 100 mg PO DAILY RF: 0 gabapentin 300 MG capsule 900 mg PO TID RF: 0 albuterol sulfate [ProAir HFA] 200 PUFF/INH HFA aerosol inhaler 2 puff Inhalation Q4H PRN PRNQty: 1 RF: 0 Narcan 4 MG spray,non-aerosol 4 mg NS DIRECTED Qty: 2 RF: 0 albuterol sulfate [Ventolin HFA] 200 PUFF HFA aerosol inhaler 2 inh Inhalation Q4H PRN PRNRF: 0 buprenorphine-naloxone [Suboxone] 4-1 mg Film 4 film Sublingual DAILY AM RF: 0 Medical Decision Making 40-year-old male with a longstanding history of substance abuse. Was brought by the [employer] after authorities were called for a gentleman sleeping on the ground near the director law enforcement's office. He states he slept there all night and feels cold. States he is been living in [place]. Patient does not have central hypothermia, he is cool to the touch but without clear distress. The patient had IV access established, patient placed on a campus monitor, given warm fluids, warm blanket, screening laboratories obtained. Patient ate morning meal. He says he felt significantly better, was more interactive and pleasant to the nursing staff. He subjects that he wished to be discharged home. He has capacity to make decisions in my opinion. He was signed out AGAINST MEDICAL ADVICE knowing that his blood work was pending. He understands he may return at any time. HPI General Mode of arrival: ambulatory. Date/Time Provider Initiated Documentation: 04/08/20 09:30. Limitations to Documentation: no limitations. Information obtained by: patient and police. History of Present Illness 40 year old M presents to the emergency department with the chief complaint of Brought by police, slept outside, cold, described as moderate, Quality is described as dull and constant, Patient reports no radiation. Patient started experiencing this hour(s) and it has been constant. No relieving factors improve symptom(s), No exacerbating factors reported . Patient notes no other symptoms.; denies chest pain, headaches and syncope. Patient did receive the following treatments prior to arrival, none Related Data Home Medications Medication Instructions Recorded Confirmed warfarin 15 mg PO DAILY 02/16/16 01/20/19 gabapentin 900 mg PO TID 04/02/16 01/20/19 sertraline 100 mg PO DAILY 04/02/16 01/20/19 albuterol sulfate [Ventolin HFA] 2 inh INHALATION Q4H PRN PRN 06/24/16 01/20/19 albuterol sulfate [ProAir HFA] 2 puff INHALATION Q4H PRN PRN #1 01/03/18 01/20/19 inh Narcan 4 mg NS DIRECTED #2 spray 01/13/18 01/20/19 buprenorphine-naloxone [Suboxone] 4 film SUBLINGUAL DAILY AM 12/01/18 01/20/19 Previous Rx's Medication Instructions Recorded albuterol sulfate [ProAir HFA] 2 puff INHALATION Q4H PRN PRN #1 01/03/18 inh Narcan 4 mg NS DIRECTED #2 spray 01/13/18 Allergies Allergy/AdvReac Type Severity Reaction Status Date / Time Penicillins Allergy Unknown tolerating Unverified 04/08/20 09:43 Oxacillin this admission 06/24/16 per latex Allergy Unverified 04/08/20 09:43 General JEREMIAS: 2 Review of Systems Narrative: States he lives in [place]. No recent illness. 4 systems reviewed and otherwise negative [facility] Social History Smoking/Tobacco Use Status: Current every day Tobacco Type: cigarettes Alcohol Intake: current Alcohol Intake frequency: 0-2 drinks per day Drug use: Daily Substance use type: opiates Details: pt not answering questions about use at this time. Words slurred- denies recent traum. Do you feel safe at home: Yes Do you feel safe in your relationship?: Yes Additional Social history: states lives at [facility] in [place] Exam Narrative Exam Narrative: GEN: awake, alert, cool skin, slightly shivering, interactive. HEAD: Normocephalic, atraumatic ENT: Mucous membranes moist, oropharynx unremarkable, External ear exam unremarkable EYES: PERRL, EOMI NECK: Full ROM, no CAPRICE, no menigismus CHEST/RESP: Dry cough noted, midline healed sternotomy scar, nontender, clear to auscultation bilateral, no wheeze/rhonchi/rales CARDIOVASCULAR: RRR, no murmur, rub davion. 2+ Rad pulse bilateral ABDOMEN: Soft, nontender, no mass. +Bowel sounds EXT: Full ROM, no edema, no rash, cool to touch, capillary refill approximately 1 second Neuro: Grossly normal neurologic exam, conversant, interactive. Psych: Speech fluent, thoughts congruent, affect normal
[2020-04-08 09:39] VITALS: BP 144/95; PULSE 75; PULSE 83; RESP 22; TEMP 36.9; O2SAT 96
[2020-04-08 09:45] VITALS: BP 152/100; PULSE 75; PULSE 77; RESP 6; O2SAT 95
[2020-04-08 10:16] VITALS: BP 143/88; PULSE 67; PULSE 69; RESP 14; O2SAT 92
[2020-04-08 10:18] LABS: Abs Immature Grans 0.42 10^3/uL (0.0-0.06); Absolute Basophil Count 0.26 10^3/uL (0.0-0.2); Absolute Eosinophil Count 0.09 10^3/uL (0.0-0.7); Absolute Lymphocyte Count 2.11 10^3/uL (1.2-3.4); Absolute Monocyte Count 0.93 10^3/uL (0.1-0.8); Basophils % 2.1; Eosinophils % 0.7; HCT 43.8 % (40.0-50.0); HGB 14.6 g/dL (13.5-17.5); Immature Grans % 3.4; MCH 31.5 pg (27.0-33.0); MCHC 33.3 % (32.0-36.0); MCV 94.6 fL (80-95); MPV 9.6 fL (8.0-11.0); Monocytes % 7.5; Neutrophils % 69.3; Nucleated RBC 1 %; Platelet Count 523 10^3/uL (130-400); RBC 4.63 10^6/uL (4.36-5.78); RDW 15.5 % (11.8-14.1); RDW-SD 54.4 fL; WBC 12.39 10^3/uL (4.4-10.8)
[2020-04-08 10:19] LABS: Absolute Neutrophil Count 8.59 10^3/uL (1.2-6.7)
[2020-04-08 10:30] VITALS: BP 141/80; PULSE 39; RESP 16; O2SAT 92
[2020-04-08 10:40] LABS: ALT 43 U/L (16-63); AST 34 U/L (15-37); Albumin 4.1 g/dL (3.4-5.0); Alkaline Phosphatase 99 U/L (46-116); Anion Gap 10.5 mmol/L (3-11); BUN 8 mg/dL (7-18); Bilirubin, Total 0.2 mg/dL (0.2-1.0); CO2 28.5 mmol/L (21.0-32.0); CREATININE 0.75 mg/dL (0.70-1.30); Calcium 8.9 mg/dL (8.5-10.1); Chloride 99 mmol/L (98-107); Glucose 103 mg/dL (74-106); Magnesium 1.9 mg/dL (1.8-2.4); Sodium 138 mmol/L (136-145); Total Protein 8.9 g/dL (6.4-8.2)
[2020-04-08 10:43] LABS: ETHANOL BLOOD 336.1 mg/dL (<3)
[2020-04-08 10:44] LABS: Troponin I < 0.05 ng/mL (<0.06)
--- NOTE | 2020-04-08 10:53 | NUR.NOTE ---
Nursing Note: PATEINT LEFT AMA AFTER DEEMED COMPITENT
--- NOTE | 2020-04-08 17:28 | NUR.NOTE ---
Nursing Note: pt's cell phone number is [phone]
== END 2020-04-08 10:30 | disposition left against medical advice (07) ==
LOC: ER 10:37
PROVIDERS: Emergency Provider Emergency Medicine; PCP Family Medicine
DX: R41.82 Altered mental status, unspecified (principal); T69.8XXA Other specified effects of reduced temperature, initial encounter; Z53.29 Procedure and treatment not carried out because of patient's decision for other reasons
CPT/HCPCS: 36415; 80053; 93005; 99285; 80320; 83735; 84484; 85025; 93010; 99284

== ENCOUNTER 2020-04-30 09:59 | Emergency (ER) | payer MEDICAID, SELFPAY ==
[2020-04-30 10:07] VITALS: BP 137/89; PULSE 74; RESP 15; TEMP 37.1; O2SAT 92
[2020-04-30 10:15] VITALS: RESP 14
--- NOTE | 2020-04-30 10:31 | W.ED.GENAD ---
Discharge Plan Disposition Patient Disposition: AGAINST MEDICAL ADVICE Condition: Stable Discharge Details Clinical Impression: Left acute suppurative otitis media Primary Care Provider: Radha Tracey ED Provider: Shelby Franz Home Meds and New Rx's Prescriptions: New azithromycin [Zithromax] 500 mg tablet See Rx Instructions .ROUTE .COMPLEX Qty: 6 RF: 0 No Action warfarin 10 MG tablet 15 mg PO DAILY RF: 0 sertraline 100 MG tablet 100 mg PO DAILY RF: 0 gabapentin 300 MG capsule 900 mg PO TID RF: 0 albuterol sulfate [ProAir HFA] 200 PUFF/INH HFA aerosol inhaler 2 puff Inhalation Q4H PRN PRNQty: 1 RF: 0 Narcan 4 MG spray,non-aerosol 4 mg NS DIRECTED Qty: 2 RF: 0 albuterol sulfate [Ventolin HFA] 200 PUFF HFA aerosol inhaler 2 inh Inhalation Q4H PRN PRNRF: 0 buprenorphine-naloxone [Suboxone] 4-1 mg Film 16 film Sublingual DAILY AM RF: 0 Discharge Instructions Instructions: Ear Infection (ED) Additional Instructions: At this time you are choosing to leave AGAINST MEDICAL ADVICE prior to completing your work-up. Please take the antibiotics as directed, follow up with primary care provider in 3-5 days. Return to ED sooner if any worsening or concerns. Increase oral fluids. Please take Tylenol or Ibuprofen with food every 4-6 hours as needed for pain and swelling. Return to the ED for any worsening symptoms, fever no improvement in the next 2 to 3 days or any concerns. Referrals: Radha Tracey [Primary Care Provider] - Discharge Data Discharge Date/Time-TO BE ENTERED AT DEPARTURE: 04/30/20 11:43 Medical Decision Making 40-year-old male presents to the ER with chief complaint of left ear pain, shortness of breath, fever x4 days. He presents with his who states that he has been self-medicating for pain with alcohol. She reports he has been drinking at least half a gallon of liquor a day. He does endorse drinking this morning prior to arrival. He does appear intoxicated and is hard of hearing as well. Upon initial exam he does have what appears to be supportive left otitis media, inspiratory and expiratory wheezes on auscultation. His O2 sats is high 80s to low 90s, placed on 2 L nasal cannula which brought his O2 sat up to 94%. He does take Coumadin on a daily basis for a aortic valve replacement. He does have a history of alcohol abuse, bipolar disorder, CVA, hypertension, endocarditis, brain abscess, PTSD, surgical history includes appendectomy and splenectomy. states that he does have a history of ear infections. According to direct support staff patient's IV infiltrated while azithromycin infusing. Patient is declining to have another IV started at this time. He is requesting to be discharged home. is at bedside who is unable to convince patient to stay. Patient has declined to wait for chest x-ray. Discussed risks and benefits, ordered azithromycin 500 mg p.o. to be given here in department which patient left prior to receiving. Discharge instructions and prescription for antibiotics handed to patient's by direct support staff. Patient requesting to leave AMA. The patient appears clinically sober and is not under the influence of any known substances. Discussed risks and benefits with patient. Patient verbalizes understanding of situation and the risks of leaving including worsening condition, developing disability, including but not limited to .Discussed results of labs and imaging, if they were performed and recommendations for further treatment and/or observation. The patient verbalizes understanding of the results discussed. Every effort was made to involve family if appropriate and situation discussed. At this time patient has opted to leave against medical advice. Patient and family is alert and oriented and has the capacity to make own decisions. HPI General Mode of arrival: ambulatory. Date/Time Provider Initiated Documentation: 04/30/20 10:00. Limitations to Documentation: altered mental status (Intoxicated). Information obtained by: patient and family. HPI Narrative: 40-year-old male presents to the ER with chief complaint of left ear pain, shortness of breath, fever x4 days. He presents with his who states that he has been self-medicating for pain with alcohol. She reports he has been drinking at least half a gallon of liquor a day. He does endorse drinking this morning prior to arrival. He does appear intoxicated and is hard of hearing as well. Upon initial exam he does have what appears to be supportive left otitis media, inspiratory and expiratory wheezes on auscultation. His O2 sats is high 80s to low 90s, placed on 2 L nasal cannula which brought his O2 sat up to 94%. He does take Coumadin on a daily basis for a aortic valve replacement. He does have a history of alcohol abuse, bipolar disorder, CVA, hypertension, endocarditis, brain abscess, PTSD, surgical history includes appendectomy and splenectomy. states that he does have a history of ear infections. Related Data Home Medications Medication Instructions Recorded Confirmed warfarin 15 mg PO DAILY 02/16/16 04/30/20 gabapentin 900 mg PO TID 04/02/16 04/30/20 sertraline 100 mg PO DAILY 04/02/16 04/30/20 albuterol sulfate [Ventolin HFA] 2 inh INHALATION Q4H PRN PRN 06/24/16 04/30/20 albuterol sulfate [ProAir HFA] 2 puff INHALATION Q4H PRN PRN #1 01/03/18 01/20/19 inh Narcan 4 mg NS DIRECTED #2 spray 01/13/18 04/30/20 buprenorphine-naloxone [Suboxone] 16 film SUBLINGUAL DAILY AM 12/01/18 04/30/20 azithromycin [Zithromax] See Rx Instructions .ROUTE 04/30/20 .COMPLEX #6 tab Previous Rx's Medication Instructions Recorded albuterol sulfate [ProAir HFA] 2 puff INHALATION Q4H PRN PRN #1 01/03/18 inh Narcan 4 mg NS DIRECTED #2 spray 01/13/18 azithromycin [Zithromax] See Rx Instructions .ROUTE 04/30/20 .COMPLEX #6 tab Allergies Allergy/AdvReac Type Severity Reaction Status Date / Time Penicillins Allergy Unknown tolerating Unverified 04/30/20 10:21 Oxacillin this admission 06/24/16 per latex Allergy Unverified 04/30/20 10:21 General Stated Complaint: GenMedical JEREMIAS: 3 Review of Systems Narrative: History limited due to patient intoxication. Additional history obtained from . Constitutional: Negative for weight loss, appears intoxicated, does endorse EtOH this morning. Well groomed, normal body habitus, appears uncomfortable. HEENT: Denies trauma, blurry vision, nasal discharge, sore throat, trouble swallowing. Left ear pain. Chest: Denies chest pain, palpitations, irregular rhythm, hypertension. Respiratory: Denies hemoptysis. Positive shortness of breath and yellow sputum with cough. GI: Denies abdominal pain, nausea, vomiting, diarrhea, constipation. : Denies dysuria, hematuria, flank pain, rectal bleeding. Neuro: Denies dizziness, blurry vision, weakness, syncope, headache or facial numbness. Hematologic: Denies easy bruising, intolerance to heat or cold, hair loss. [facility] Social History Smoking/Tobacco Use Status: Current every day Tobacco Type: cigarettes Alcohol Intake: current Alcohol Intake frequency: 3 or more drinks per day Alcohol type: hard liquor Drug use: Current Sobriety Details: patient on suboxone Do you feel safe at home: Yes Do you feel safe in your relationship?: Yes Additional Social history: states lives at [facility] in [place] Exam Narrative Exam Narrative: Constitutional: Smells strongly of EtOH, appears stated age. Normal body habitus. Head: Normocephalic, no trauma. Eyes: Pupils PERRLA, injected conjunctive a, Red reflex noted, EOM's intact. Eyelids symmetrical without lesions, discharge, or swelling. ENT: Dried blood noted in the external ear canal the right ear, left tympanic membrane unable to be visualized due to supportive otitis media, there is purulent drainage noted to the ear canal, no mastoid TTP, swelling, or erythema, Nasal turbinates WNL, no nasal discharge. Normal dentition, Posterior pharynx erythemic, no exudate. Chest: RRR, Normal S1, S2, distal pulses intact. Resp: Lungs inspiratory and expiratory wheezes throughout bilaterally, no rales, or rhonchi. Abdomen: Soft nontender to palpation. Musculoskeletal: Normal gait, 5/5 strength to all four extremities. Skin: No suspicious rashes or lesions. Capillary refill less than 2 sec. Neurologic: Cranial nerves II-XII intact. Hematologic/Lymphatic: No ecchymosis, no lymphadenopathy. Course Vital Signs Vital signs: Vital Signs Temperature 37.1 C 04/30/20 10:07 Pulse 74 04/30/20 10:07 Respiratory Rate 15 04/30/20 10:07 Blood Pressure 137/89 04/30/20 10:07 Pulse Oximetry 92 04/30/20 10:07 Temperature 37.1 C 04/30/20 10:07 Temperature Source Skin 04/30/20 10:07 Pulse 74 04/30/20 10:07 Respiratory Rate 14 04/30/20 10:15 Respiratory Effort Splinting 04/30/20 10:15 Respiratory Depth Normal 04/30/20 10:15 Respiratory Pattern Normal 04/30/20 10:15 Blood Pressure 137/89 04/30/20 10:07 Blood Pressure Position Sitting 04/30/20 10:07 Pulse Oximetry 92 04/30/20 10:07 Oxygen Delivery Method Room Air 04/30/20 10:07 Oxygen Flow Rate 0 04/30/20 10:07 Pain Level 8 04/30/20 10:07 Lab/Test Results Lab/Test Results: 04/30/20 10:25 Blood Blood Culture - Pending 04/30/20 10:25 Blood Blood Culture - Pending
[2020-04-30] MEDS: Normal Saline 1,000 ML 1000 ML IV (10:50)
[2020-04-30 10:57] LABS: Lactate 1.2 mmol/L (0.6-1.4)
[2020-04-30 11:04] LABS: Abs Immature Grans 0.02 10^3/uL (0.0-0.06); Absolute Basophil Count 0.09 10^3/uL (0.0-0.2); Absolute Eosinophil Count 0.37 10^3/uL (0.0-0.7); Absolute Lymphocyte Count 1.86 10^3/uL (1.2-3.4); Absolute Monocyte Count 0.89 10^3/uL (0.1-0.8); Absolute Neutrophil Count 5.99 10^3/uL (1.2-6.7); HCT 43.5 % (40.0-50.0); HGB 14.4 g/dL (13.5-17.5); Immature Grans % 0.2; Lymphocytes % 20.2; MCH 31.8 pg (27.0-33.0); MCHC 33.1 % (32.0-36.0); MPV 11.2 fL (8.0-11.0); Monocytes % 9.7; Neutrophils % 64.9; Nucleated RBC 0 %; Platelet Count 210 10^3/uL (130-400); RBC 4.53 10^6/uL (4.36-5.78); RDW 16.5 % (11.8-14.1); RDW-SD 58.4 fL; WBC 9.22 10^3/uL (4.4-10.8)
[2020-04-30] MEDS: AZITHROMYCIN 500 MG in Normal Saline 250 ML 250 MG IVPB (11:08)
[2020-04-30 11:15] LABS: ALT 36 U/L (16-63); AST 39 U/L (15-37); Albumin 3.6 g/dL (3.4-5.0); Alkaline Phosphatase 100 U/L (46-116); Anion Gap 7.9 mmol/L (3-11); BUN 11 mg/dL (7-18); Bilirubin, Total 0.2 mg/dL (0.2-1.0); CO2 32.1 mmol/L (21.0-32.0); CREATININE 0.87 mg/dL (0.70-1.30); Calcium 8.1 mg/dL (8.5-10.1); Chloride 102 mmol/L (98-107); Glucose 98 mg/dL (74-106); Potassium 4.5 mmol/L (3.5-5.1); Sodium 142 mmol/L (136-145); Total Protein 7.9 g/dL (6.4-8.2)
[2020-04-30] MEDS: Ketorolac 30 MG/ML VIAL IVP (11:16)
[2020-04-30] MEDS: Normal Saline Flush 10 ML SYR IVP (11:16)
[2020-04-30 11:18] LABS: ETHANOL BLOOD > 300.0 mg/dL (<3)
--- NOTE | 2020-04-30 11:36 | NUR.NOTE ---
Nursing Note: In pt room, pt is antsy- up and down in stretcher and getting leads tangled frequently. Bed adjusted per pt comfort and leads untangled and put up above head to avoid further tangles or trip hazard. Pt returned to room and nurse exits. out of room later and states pt IV is swelling- IV infiltrated, swelling noted above IV site. IV removed and warm compress applied and CUP MACHINE OPERATOR made aware. Pt refusing second IV placement, states he wants to take a pill and go home. CUP MACHINE OPERATOR prepared discharge instructions/AMA form/Prescriptions- pt became angry and left department abruptly. given discharge instructions/prescriptions and first dose of antibiotics per verbal order Dr. French to take at home.
== END 2020-04-30 11:43 | disposition left against medical advice (07) ==
PROVIDERS: Emergency Provider Registered Nurse Emergency; PCP Family Medicine
DX: H66.002 Acute suppurative otitis media without spontaneous rupture of ear drum, left ear (principal); R50.9 Fever, unspecified; R06.02 Shortness of breath; F10.120 Alcohol abuse with intoxication, uncomplicated; Y90.8 Blood alcohol level of 240 mg/100 ml or more; R09.02 Hypoxemia; I10 Essential (primary) hypertension; Z53.29 Procedure and treatment not carried out because of patient's decision for other reasons
CPT/HCPCS: 36415; 80053; 87040; 96361; 96365; 96375; 99285; 80320; 83605; 83735; 85025; 99284; J0456; J1885

== ENCOUNTER 2020-05-01 11:19 | Emergency (ER) | payer MEDICAID, SELFPAY ==
[2020-05-01] VITALS (16 sets, daily range): BP systolic 131–137; BP diastolic 75–94; PULSE 57–94; RESP 4–21; TEMP 36.7; O2SAT 87–94
--- NOTE | 2020-05-01 11:30 | DI.RAD_ITS ---
EXAM: XR PORTABLE CHEST AP CLINICAL HISTORY: cough/wheeze TECHNIQUE: 2D digital imaging was performed. COMPARISON: CR XR PORTABLE CHEST AP from 01/20/2019 FINDINGS: MEDIASTINUM: Normal. HEART: The heart appears mildly enlarged. There is a cardiac valvular replacement. PULMONARY VASCULATURE: Normal. LUNGS: Clear. PLEURAL SPACE: No pleural effusion or pneumothorax. BONE:Within normal limits for the patient's age. OTHER FINDINGS:Normal. IMPRESSION: No acute pulmonary findings. DATA REPOSITORY: RADIATION DOSE DELIVERED:
--- NOTE | 2020-05-01 11:40 | ED.GENADUL_ITS ---
Discharge Plan Disposition Patient Disposition: AGAINST MEDICAL ADVICE Condition: Stable Discharge Details Clinical Impression: Left otitis media with spontaneous rupture of eardrum, Acute bronchitis with bronchospasm, Supratherapeutic INR Primary Care Provider: Radha Tracey ED Provider: Balaji French Home Meds and New Rx's Prescriptions: New cefdinir 300 mg capsule 300 mg PO Q12H 10 Days Qty: 20 RF: 0 prednisone 50 mg tablet 50 mg PO DAILY 5 Days Qty: 5 RF: 0 No Action warfarin 10 MG tablet 15 mg PO DAILY RF: 0 sertraline 100 MG tablet 100 mg PO DAILY RF: 0 gabapentin 300 MG capsule 900 mg PO TID RF: 0 albuterol sulfate [ProAir HFA] 200 PUFF/INH HFA aerosol inhaler 2 puff Inhalation Q4H PRN PRNQty: 1 RF: 0 Narcan 4 MG spray,non-aerosol 4 mg NS DIRECTED Qty: 2 RF: 0 albuterol sulfate [Ventolin HFA] 200 PUFF HFA aerosol inhaler 2 inh Inhalation Q4H PRN PRNRF: 0 buprenorphine-naloxone [Suboxone] 4-1 mg Film 16 film Sublingual DAILY AM RF: 0 azithromycin [Zithromax] 500 mg tablet See Rx Instructions .ROUTE .COMPLEX Qty: 6 RF: 0 Discharge Instructions Instructions: Ear Infection (ED), Acute Bronchitis (ED) Additional Instructions: You have elected to leave AGAINST MEDICAL ADVICE. Your INR was greater than 8 today. Stop your warfarin for 2 days to morning. You were given vitamin K prior to discharge to help reverse the high level of anticoagulation. Return if you develop bleeding. We will arrange an outpatient follow-up for you with Dr. rTacey on Saturday or Saturday as you will need to have the warfarin level, the INR rechecked. Please take today's prescribed antibiotic Cefpodoxime until finished. Take prednisone as prescribed. Continue your inhaler at home if needed. You may return at any time for reevaluation. Medical Decision Making 40-year-old male polysubstance abuser who was seen in the ER yesterday for days of left ear pain. He had left otitis media and was started on azithromycin of which he is taking the initial and now day 2 doses. He had labs obtained but refused a chest x-ray and left AGAINST MEDICAL ADVICE. He complains now of decreased hearing on the left side and ongoing cough with shortness of breath. He is afebrile and interactive. He is borderline hypoxic on room air. Exam reveals a ruptured left tympanic membrane and diffuse end expiratory wheezing. Laboratories obtained yesterday included a white blood cell count of 9, hematocrit 43, platelets 210. He had chemistries obtained with reassuring electrolytes. Today, INR added Patient had a portable chest x-ray which does not show any evidence of acute abnormality He was given oral prednisone, inhaled DuoNeb therapy and ceftriaxone 1 g IM. INR supratherapeutic greater than 8. There is no evidence of active bleeding. As such, vitamin K ordered for the patient. He then elected to abscond from the ER/leave AGAINST MEDICAL ADVICE, but his did wait and was willing to take that an additional prescription for antibiotic. We will arrange outpatient follow-up for him on Saturday or Saturday in clinic for recheck. HPI General Mode of arrival: ambulatory . Date/Time Provider Initiated Documentation: 05/01/20 11:21 . Limitations to Documentation: no limitations . Information obtained by: patient and family . History of Present Illness 40 year old M presents to the emergency department with the chief complaint of Left ear pain, cough and shortness of breath, described as moderate, Quality is described as dull and constant, Patient reports no radiation. Patient started experiencing this day(s) and it has been constant. No relieving factors improve symptom(s), No exacerbating factors reported . Patient notes cough, fever/chills, shortness of breath and other (Decreased hearing left). Patient did receive the following treatments prior to arrival, other (Azithromycin day 2) Related Data Home Medications Medication Instructions Recorded Confirmed warfarin 15 mg PO DAILY 02/16/16 05/01/20 gabapentin 900 mg PO TID 04/02/16 05/01/20 sertraline 100 mg PO DAILY 04/02/16 05/01/20 albuterol sulfate [Ventolin HFA] 2 inh INHALATION Q4H PRN PRN 06/24/16 05/01/20 albuterol sulfate [ProAir HFA] 2 puff INHALATION Q4H PRN PRN #1 01/03/18 05/01/20 inh Narcan 4 mg NS DIRECTED #2 spray 01/13/18 05/01/20 buprenorphine-naloxone [Suboxone] 16 film SUBLINGUAL DAILY AM 12/01/18 05/01/20 azithromycin [Zithromax] See Rx Instructions .ROUTE 04/30/20 05/01/20 .COMPLEX #6 tab cefdinir 300 mg PO Q12H 10 Days #20 cap 05/01/20 prednisone 50 mg PO DAILY 5 Days #5 tab 05/01/20 Previous Rx's Medication Instructions Recorded albuterol sulfate [ProAir HFA] 2 puff INHALATION Q4H PRN PRN #1 01/03/18 inh Narcan 4 mg NS DIRECTED #2 spray 01/13/18 azithromycin [Zithromax] See Rx Instructions .ROUTE 04/30/20 .COMPLEX #6 tab cefdinir 300 mg PO Q12H 10 Days #20 cap 05/01/20 prednisone 50 mg PO DAILY 5 Days #5 tab 05/01/20 Allergies Allergy/AdvReac Type Severity Reaction Status Date / Time Penicillins Allergy Unknown tolerating Unverified 05/01/20 11:29 Oxacillin this admission 06/24/16 per latex Allergy Unverified 05/01/20 11:29 General Stated Complaint: EarProblem JEREMIAS: 3 Review of Systems Narrative: 6 systems reviewed and otherwise negative [facility] Social History Smoking/Tobacco Use Status: Current every day Tobacco Type: cigarettes Alcohol Intake: current Alcohol Intake frequency: 3 or more drinks per day Alcohol type: hard liquor Drug use: Current Sobriety Details: patient on suboxone Do you feel safe at home: Yes Do you feel safe in your relationship?: Yes Additional Social history: states lives at [facility] in [place] Exam Narrative Exam Narrative: GEN: awake, alert, oriented 3. Pleasant, well groomed, interactive. HEAD: Normocephalic, atraumatic ENT: Mucous membranes moist, oropharynx unremarkable, left tympanic membrane is ruptured, right tympanic membrane intact external ear exam unremarkable EYES: PERRL, EOMI NECK: Full ROM, no CAPRICE, no menigismus CHEST/RESP: Nontender, diffuse bilateral end expiratory wheezing CARDIOVASCULAR: RRR, no murmur, rub davion. 2+ Rad pulse bilateral ABDOMEN: Soft, nontender, no mass. +Bowel sounds EXT: Full ROM, no edema, no rash Neuro: Grossly normal neurologic exam, conversant, interactive. Psych: Speech fluent, thoughts congruent, affect normal Course Vital Signs Vital signs: Vital Signs Temperature 36.7 C 05/01/20 11:26 Pulse 72 05/01/20 11:26 Respiratory Rate 20 05/01/20 11:26 Blood Pressure 137/90 05/01/20 11:26 Pulse Oximetry 90 L 05/01/20 11:26 Temperature 36.7 C 05/01/20 11:26 Temperature Source Temporal Artery Scan 05/01/20 11:26 Pulse 72 05/01/20 11:26 Respiratory Rate 20 05/01/20 11:26 Respiratory Effort 05/01/20 11:31 Blood Pressure 137/90 05/01/20 11:26 Pulse Oximetry 90 L 05/01/20 11:26 Oxygen Delivery Method Room Air 05/01/20 11:26 Oxygen Flow Rate 0 05/01/20 11:26 Pain Level 05/01/20 11:26
--- NOTE | 2020-05-01 12:01 | NUR.NOTE ---
Referral faxed to patient pcp Dr. Tracey for f/u.ursing Note:
[2020-05-01] MEDS: predniSONE 20 MG TAB 60 MG PO (12:07)
[2020-05-01] MEDS: cefTRIAXone 1 GM VIAL IM (12:10)
[2020-05-01] MEDS: Albuterol/Ipratropium 3 ML UPD VIAL UPD (12:12)
[2020-05-01 12:38] LABS: Prothrombin Time > 83.4 sec (9.3-11.0)
[2020-05-01 12:40] LABS: INR > 8.8 (0.9-1.1)
[2020-05-01] MEDS: Phytonadione 5 MG TABLET 2.5 MG PO (13:02)
--- NOTE | 2020-05-05 16:03 | DI.VRAD_ITS ---
PROCEDURE INFORMATION: Exam: XR Chest, 1 View Exam date and time: 05/01/2020 11:51 AM Age: 40 years old Clinical indication: Other: Cough/wheeze; Prior surgery; Surgery date: 6+ months; Surgery type: Open heart TECHNIQUE: Imaging protocol: XR of the chest Views: 1 view. COMPARISON: [place] XR PORTABLE CHEST AP 01/20/2019 5:47 PM FINDINGS: Tubes, catheters and devices: A mitral valve prosthesis is present. Lungs: Unremarkable. No consolidation. Pleural space: Unremarkable. No pleural effusion. No pneumothorax. Heart/Mediastinum: The cardiac silhouette is enlarged. Bones/joints: Unremarkable. IMPRESSION: Enlargement of the cardiac silhouette. No acute abnormality. Dictated and Authenticated by: Teodoro Corrales MD. Ordering:MARLENY Carpio MD
== END 2020-05-01 12:53 | disposition left against medical advice (07) ==
PROVIDERS: Emergency Provider Emergency Medicine; PCP Family Medicine
DX: H66.012 Acute suppurative otitis media with spontaneous rupture of ear drum, left ear (principal); J20.9 Acute bronchitis, unspecified; R79.1 Abnormal coagulation profile; T45.515A Adverse effect of anticoagulants, initial encounter; Z79.01 Long term (current) use of anticoagulants; F19.10 Other psychoactive substance abuse, uncomplicated; R09.02 Hypoxemia; Z53.29 Procedure and treatment not carried out because of patient's decision for other reasons
CPT/HCPCS: 94640; 96372; 99284; 71045; 85610; J0696; J7512; J7620

== ENCOUNTER 2020-05-02 16:45 | Emergency (ER) | payer MEDICAID, SELFPAY ==
[2020-05-02 16:46] VITALS: BP 160/102; PULSE 94; RESP 16; TEMP 36.4; O2SAT 93
--- NOTE | 2020-05-02 16:51 | ED.GENADUL_ITS ---
Discharge Plan Disposition Patient Disposition: AGAINST MEDICAL ADVICE Condition: Stable Discharge Details Clinical Impression: Left against medical advice Primary Care Provider: Radha Tracey ED Provider: Balaji French Home Meds and New Rx's Prescriptions: Continued sertraline 100 MG tablet 100 mg PO DAILY RF: 0 gabapentin 300 MG capsule 900 mg PO TID RF: 0 albuterol sulfate [ProAir HFA] 200 PUFF/INH HFA aerosol inhaler 2 puff Inhalation Q4H PRN PRNQty: 1 RF: 0 Narcan 4 MG spray,non-aerosol 4 mg NS DIRECTED Qty: 2 RF: 0 albuterol sulfate [Ventolin HFA] 200 PUFF HFA aerosol inhaler 2 inh Inhalation Q4H PRN PRNRF: 0 buprenorphine-naloxone [Suboxone] 4-1 mg Film 16 film Sublingual DAILY AM RF: 0 azithromycin [Zithromax] 500 mg tablet See Rx Instructions .ROUTE .COMPLEX Qty: 6 RF: 0 cefdinir 300 mg capsule 300 mg PO Q12H 10 Days Qty: 20 RF: 0 prednisone 50 mg tablet 50 mg PO DAILY 5 Days Qty: 5 RF: 0 No Action warfarin 10 MG tablet 15 mg PO DAILY RF: 0 Discharge Instructions Instructions: Against Medical Advice (ED) Additional Instructions: You have decided to leave AGAINST MEDICAL ADVICE. As discussed yesterday, you must hold her warfarin until seen for recheck of laboratories as you have planned tomorrow at [facility]. Continue the previously prescribed antibiotics and steroids. Medical Decision Making 40-year-old male presents via EMS after he what he states was the urging of his . He is known to me from yesterday's emergency department visit when he was diagnosed with bronchitis, supratherapeutic INR. Patient states to me he does not wish to be evaluated in the ER. He states he has follow-up with [facility] tomorrow and has been holding his warfarin and is taking his antibiotics. I do feel he has capacity to make this decision. He will be discharged AGAINST MEDICAL ADVICE. HPI General Mode of arrival: EMS . Date/Time Provider Initiated Documentation: 05/02/20 16:46 . Limitations to Documentation: no limitations . Information obtained by: patient . History of Present Illness 40 year old M presents to the emergency department with the chief complaint of States he does not want to be here. [facility], Related Data Home Medications Medication Instructions Recorded Confirmed warfarin 15 mg PO DAILY 02/16/16 05/01/20 gabapentin 900 mg PO TID 04/02/16 05/01/20 sertraline 100 mg PO DAILY 04/02/16 05/01/20 albuterol sulfate [Ventolin HFA] 2 inh INHALATION Q4H PRN PRN 06/24/16 05/01/20 albuterol sulfate [ProAir HFA] 2 puff INHALATION Q4H PRN PRN #1 01/03/18 05/01/20 inh Narcan 4 mg NS DIRECTED #2 spray 01/13/18 05/01/20 buprenorphine-naloxone [Suboxone] 16 film SUBLINGUAL DAILY AM 12/01/18 05/01/20 azithromycin [Zithromax] See Rx Instructions .ROUTE 04/30/20 05/01/20 .COMPLEX #6 tab cefdinir 300 mg PO Q12H 10 Days #20 cap 05/01/20 prednisone 50 mg PO DAILY 5 Days #5 tab 05/01/20 Previous Rx's Medication Instructions Recorded albuterol sulfate [ProAir HFA] 2 puff INHALATION Q4H PRN PRN #1 01/03/18 inh Narcan 4 mg NS DIRECTED #2 spray 01/13/18 azithromycin [Zithromax] See Rx Instructions .ROUTE 04/30/20 .COMPLEX #6 tab cefdinir 300 mg PO Q12H 10 Days #20 cap 05/01/20 prednisone 50 mg PO DAILY 5 Days #5 tab 05/01/20 Allergies Allergy/AdvReac Type Severity Reaction Status Date / Time Penicillins Allergy Unknown tolerating Unverified 05/01/20 11:29 Oxacillin this admission 06/24/16 per latex Allergy Unverified 05/01/20 11:29 General JEREMIAS: 3 Review of Systems Narrative: Denies to me chest pain or shortness of breath. States he is taking antibiotics and holding his warfarin pending recheck at [facility] tomorrow. [facility] Social History Smoking/Tobacco Use Status: Current every day Tobacco Type: cigarettes Alcohol Intake: current Alcohol Intake frequency: 3 or more drinks per day Alcohol type: hard liquor Drug use: Current Sobriety Details: patient on suboxone Do you feel safe at home: Yes Do you feel safe in your relationship?: Yes Additional Social history: states lives at [facility] in [place] Exam Narrative Exam Narrative: GEN: awake, alert, conversant, oriented HEAD: Normocephalic, atraumatic ENT: Mucous membranes moist, oropharynx unremarkable, External ear exam unremarkable EYES: PERRL, EOMI NECK: Full ROM, no CAPRICE, no menigismus CHEST/RESP: Patient declined exam EXT: Full ROM, no edema, no rash Neuro: Grossly normal neurologic exam, conversant, interactive. Psych: Speech fluent, thoughts congruent, affect normal
[2020-05-02 17:02] VITALS: BP 160/102; PULSE 94; RESP 16; TEMP 36.4; O2SAT 93
== END 2020-05-02 16:55 | disposition left against medical advice (07) ==
LOC: ER 17:19
PROVIDERS: Emergency Provider Emergency Medicine; PCP Family Medicine
DX: Z53.21 Procedure and treatment not carried out due to patient leaving prior to being seen by health care provider (principal)

== ENCOUNTER 2020-05-05 08:46 | Emergency (ER) | payer MEDICAID, SELFPAY ==
--- NOTE | 2020-05-05 08:50 | ED.GENADUL_ITS ---
Discharge Plan Disposition Patient Disposition: AGAINST MEDICAL ADVICE Condition: Fair Discharge Details Clinical Impression: Left otitis media with effusion, Dyspnea, Hypoxia Primary Care Provider: Radha Tracey ED Provider: Machelle Dooley Home Meds and New Rx's Prescriptions: New clindamycin HCl 150 mg capsule 450 mg PO TID 10 Days Qty: 90 RF: 0 prednisone 20 mg tablet See Rx Instructions .ROUTE .COMPLEX Qty: 18 RF: 0 No Action warfarin 10 MG tablet 15 mg PO DAILY RF: 0 sertraline 100 MG tablet 100 mg PO DAILY RF: 0 gabapentin 300 MG capsule 900 mg PO TID RF: 0 albuterol sulfate [ProAir HFA] 200 PUFF/INH HFA aerosol inhaler 2 puff Inhalation Q4H PRN PRNQty: 1 RF: 0 Narcan 4 MG spray,non-aerosol 4 mg NS DIRECTED Qty: 2 RF: 0 albuterol sulfate [Ventolin HFA] 200 PUFF HFA aerosol inhaler 2 inh Inhalation Q4H PRN PRNRF: 0 buprenorphine-naloxone [Suboxone] 4-1 mg Film 16 film Sublingual DAILY AM RF: 0 azithromycin [Zithromax] 500 mg tablet See Rx Instructions .ROUTE .COMPLEX Qty: 6 RF: 0 cefdinir 300 mg capsule 300 mg PO Q12H 10 Days Qty: 20 RF: 0 Discharge Instructions Instructions: Dyspnea (ED), Serous Otitis Media (ED) Additional Instructions: You are leaving the hospital AGAINST MEDICAL ADVICE. As we were unable to obtain blood work, EKG and CAT scan imaging, we are unable to determine whether you have a serious underlying cause for your shortness of breath including pneumonia, pulmonary embolism (blood clot in your lungs) or heart attack, etc. You are being given an additional prescription of antibiotics and steroids for your ear infection. It appears that you have fluid behind your ear which may require additional antibiotics and steroids to resolve the infection. It is advised to that you follow-up with your primary care doctor and possibly referral to an ear nose and throat doctor for further evaluation of your prolonged ear infection. Return immediately to the emergency department if you develop any worsening or new concerning symptoms. 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 Patient has left AMA 3 times in the past week for the same symptoms. He was treated with Zithromax for a few doses and then finished cefdinir and prednisone. His Coumadin has been held for the past 5 days due to INR greater than 8. BP hypertensive. 159/100. Oxygen saturation 90% on room air. Remainder vitals within normal limits. Patient appears sweaty but without tremulousness. His left ear appears dull with mild erythema with a blood clot within the ear canal but no drainage noted at this time. His his lungs have scattered wheezing with increased rhonchi and wheezing in the left chest. Patient appears intoxicated but clinically able to answer questions and demonstrates capacity to make decisions. Discussed that it would be recommended to treat with another course of steroids and antibiotics for his left ear but considering his withholding of Coumadin for the past few days and his pleuritic chest pain, would recommend labs and CT imaging to rule out PE but also consider pneumonia or less likely ACS. Due to the frequent changes in our visitor policy, as of yesterday a PUI patient who is otherwise able to answer questions and make decisions, cannot have any visitors. When patient was informed of this, he ripped off his oxygen tubing and monitor leads, cursing and telling staff F you and stormed out of the ED room. Again he demonstrated capacity to make decisions. He was advised of the risks of and disability due to a serious pathology such as PE or ACS, etc. Advised to follow up with the primary care doctor for re-evaluation. Usual and customary return precautions given prior to discharge. Patient's father had also been demanding to come back up with patient and his upon arrival to the ED but was eventually agreeable to stay in the waiting room. HPI General Mode of arrival: ambulatory . Date/Time Provider Initiated Documentation: 05/05/20 08:46 . Limitations to Documentation: no limitations . Information obtained by: patient and family . 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 He also admits to left sided chest pain that is worse with deep breath. Patient was seen here 4 times in the last month, 3 times in the last week for similar symptoms. Patient was placed on Zithromax of which she took a few doses and then cefdinir and prednisone which she finished without relief of symptoms. Patient's last INR check was also greater than 8 on lab results and he has not taken his Coumadin past 5 days after advised to hold this for his supratherapeutic INR. Patient states he has held hot and cold sweats at home but has not checked his temperature. He denies any cough, headache, anterior chest pain, vomiting, diarrhea, recent travel or recent sick contacts. Patient states he has had a normal appetite. He states his last drink was a few hours ago. He states he usually drinks a half bottle of vodka daily. Related Data Home Medications Medication Instructions Recorded Confirmed warfarin 15 mg PO DAILY 02/16/16 05/05/20 gabapentin 900 mg PO TID 04/02/16 05/05/20 sertraline 100 mg PO DAILY 04/02/16 05/05/20 albuterol sulfate [Ventolin HFA] 2 inh INHALATION Q4H PRN PRN 06/24/16 05/05/20 albuterol sulfate [ProAir HFA] 2 puff INHALATION Q4H PRN PRN #1 01/03/18 05/05/20 inh Narcan 4 mg NS DIRECTED #2 spray 01/13/18 05/05/20 buprenorphine-naloxone [Suboxone] 16 film SUBLINGUAL DAILY AM 12/01/18 05/05/20 azithromycin [Zithromax] See Rx Instructions .ROUTE 04/30/20 05/05/20 .COMPLEX #6 tab cefdinir 300 mg PO Q12H 10 Days #20 cap 05/01/20 05/05/20 clindamycin HCl 450 mg PO TID 10 Days #90 cap 05/05/20 prednisone See Rx Instructions .ROUTE 05/05/20 .COMPLEX #18 tab Previous Rx's Medication Instructions Recorded albuterol sulfate [ProAir HFA] 2 puff INHALATION Q4H PRN PRN #1 01/03/18 inh Narcan 4 mg NS DIRECTED #2 spray 01/13/18 azithromycin [Zithromax] See Rx Instructions .ROUTE 04/30/20 .COMPLEX #6 tab cefdinir 300 mg PO Q12H 10 Days #20 cap 05/01/20 clindamycin HCl 450 mg PO TID 10 Days #90 cap 05/05/20 prednisone See Rx Instructions .ROUTE 05/05/20 .COMPLEX #18 tab Allergies Allergy/AdvReac Type Severity Reaction Status Date / Time Penicillins Allergy Unknown tolerating Unverified 05/05/20 09:01 Oxacillin this admission 06/24/16 per latex Allergy Unverified 05/05/20 09:01 General JEREMIAS: 3 Review of Systems All systems reviewed & are unremarkable except as noted in HPI and below Constitutional Constitutional: Reports chills, Denies excessive sweating, Denies fatigue, Reports fever(s) (Subjective with sweats), Denies weakness and Denies weight loss Eyes Eyes: Reports system reviewed and no additional complaints, except as documented and Denies blurry vision ENT Ears, Nose, Mouth, and Throat: Denies vertigo, Denies dizziness, Reports otalgia, Denies nasal congestion, Denies sore throat and Denies throat swelling Cardiovascular Cardiovascular: Denies chest pain, Denies syncope, Denies rapid heart rate and Reports dyspnea Respiratory Respiratory: Denies chest congestion, Denies cough, Denies pain on inspiration and Reports dyspnea Gastrointestinal Gastrointestinal: Denies abdominal pain, Denies diarrhea and Denies vomiting Genitourinary Genitourinary: Denies hematuria, Denies dysuria and Denies flank pain Musculoskeletal Musculoskeletal: Denies back pain and Denies joint swelling Integumentary/Breasts Skin/Breast: Denies lesions and Denies rash Neurologic Neurologic: Denies behavioral changes, Denies confusion, Denies vertigo, Denies dizziness, Denies syncope, Denies localized weakness and Denies weakness Psychiatric Psychiatric: Denies behavioral changes, Denies confusion and Denies depression Endocrine Endocrine: Denies excessive sweating and Denies fatigue Hematologic/Lymphatic Hematologic/Lymphatic: Denies easy bruising and Denies lymphadenopathy Allergic/Immunologic Allergic/Immunologic: Denies throat swelling [facility] Medical History (Updated 05/05/20 @ 09:52 by Machelle Dooley DO) Alcohol abuse Bipolar affective disorder Brain abscess CVA (cerebral vascular accident) DIC (disseminated intravascular coagulation) Endocarditis due to Staphylococcus History of intravenous drug abuse HTN (hypertension) PTSD (post-traumatic stress disorder) Septic arterial embolism Surgical History (Updated 05/05/20 @ 09:50 by Machelle Dooley DO) H/O aortic valve replacement History of appendectomy History of splenectomy Tympanic membrane disorder TM removal Social History Smoking/Tobacco Use Status: Current every day Tobacco Type: cigarettes Alcohol Intake: current Alcohol Intake frequency: 3 or more drinks per day Alcohol type: hard liquor Drug use: Current Sobriety Details: patient on suboxone Do you feel safe at home: Yes Do you feel safe in your relationship?: Yes Additional Social history: states lives at [facility] in [place] Exam Const General: cooperative, no acute distress and intoxicated appearing Orientation: alert, awake and oriented x3 HENMT Head: normal to inspection Ears: hearing grossly normal bilaterally, external ears normal and TM abnormal dull on the left, erythematous on the left (mild), with fluid behind the TM on the left and with loss of landmarks on the left; not perforated General nose exam: external nose normal Face and sinus: normal facial exam Mouth: oral mucosae normal Teeth and gingiva: dentition normal Throat: posterior oropharynx normal Eyes General: appearance normal, both eyes and all related structures Eyelids: eyelids normal Pupils: PERRL EOM: EOM intact bilaterally Neck Neck: normal visual inspection Lymphatic: no lymphadenopathy noted Chest Chest: normal inspection of the chest Resp Effort & Inspection: normal respiratory effort, able to speak in complete sentences, not labored, no respiratory distress and no stridor Auscultation: rhonchi left upper and left lower and wheezes left lower and left upper Cardio Rate: regular rate Rhythm: regular rhythm GI Inspection: normal to inspection Palpation: soft, not firm, no guarding, no hepatosplenomegaly, no masses and nontender Auscultation: normal bowel sounds Back/Spine/Pelvis Back: no CVA tenderness Skin General skin exam: no rashes or lesions noted Neuro General: patient alert and patient awake Cognition: normal cognition Speech: speech normal Gait: normal gait Motor: muscle tone normal throughout Sensory Exam: no sensory deficits noted Extrem General: normal to inspection, full ROM, capillary refill normal and no edema Psych Appearance: grossly normal Mental Status: mental status grossly normal Speech and Movement: speech and movement normal Affect: normal affect Thought Process: normal
[2020-05-05 08:58] VITALS: BP 159/100; PULSE 80; RESP 20; TEMP 36.9; O2SAT 90
[2020-05-05 09:04] VITALS: BP 159/100; PULSE 81; PULSE 82; RESP 13; O2SAT 97
[2020-05-05 09:05] VITALS: PULSE 84; RESP 15; O2SAT 95
[2020-05-05 09:10] VITALS: PULSE 79; RESP 14; O2SAT 94
--- NOTE | 2020-05-05 16:13 | CMPROGNOTE_ITS ---
- If Service Date Differs Date of service: 05/05/20 Time of Service: 16:13 Care Management Progress Note Marlon presents in the ED today for left otitis media with effusion, dyspnea and hypoxia. This is his fourth visit in the last week and each time he has left against medical advice before evaluation could be completed. Due to concerns related to an INR greater than 8, persistent shortness of breath and pleuritic left chest pain, NATHEN telephoned Kourtney, clinical acute care registered nurse, at [facility] to ask that they follow-up with Marlon as soon as possible. Kourtney will speak with Dr. Tracey, Marlon's PCP, and will make a plan for how to proceed. Marlon currently has a scheduled appointment with Dr. Tracey on May 11, 2020. NATHEN also attempts to reach Marlon's by telephone to offer support but the number on file ([phone]) is not availab le.
== END 2020-05-05 09:36 | disposition left against medical advice (07) ==
PROVIDERS: Emergency Provider Physician Assistant; PCP Family Medicine
DX: H65.192 Other acute nonsuppurative otitis media, left ear (principal); R09.02 Hypoxemia; R07.81 Pleurodynia; R06.02 Shortness of breath; Z53.29 Procedure and treatment not carried out because of patient's decision for other reasons; I10 Essential (primary) hypertension; F10.10 Alcohol abuse, uncomplicated
CPT/HCPCS: 99283; 99284

== ENCOUNTER 2020-05-30 08:05 | Inpatient (IN) | payer MEDICAID, SELFPAY ==
[2020-05-30] VITALS (96 sets, daily range): BP systolic 127–193; BP diastolic 53–116; PULSE 85–138; RESP 15–34; TEMP 36–37.8; O2SAT 90–99
--- NOTE | 2020-05-30 08:15 | DI.RAD_ITS ---
EXAM: XR PORTABLE CHEST AP CLINICAL HISTORY: SOB, PUI TECHNIQUE: COMPARISON: CR,XR XR PORTABLE CHEST AP from 05/01/2020 FINDINGS: Heart is not enlarged. There is an apparent mitral valve prosthesis. Lungs are clear and well expan ded. IMPRESSION: No evidence of acute process. RADIATION DOSE DELIVERED: Total DLP
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
[2020-05-30] MEDS: LORazepam 2 MG/ML VIAL 1 MG IVP (08:44)
[2020-05-30] MEDS: Normal Saline 1,000 ML 1000 ML IV (08:44)
[2020-05-30] MEDS: LORazepam 2 MG/ML VIAL 1 MG IM (08:58)
[2020-05-30 09:01] LABS: Abs Immature Grans 0.03 10^3/uL (0.0-0.06); Absolute Basophil Count 0.08 10^3/uL (0.0-0.2); Absolute Eosinophil Count 0.01 10^3/uL (0.0-0.7); Absolute Lymphocyte Count 1.52 10^3/uL (1.2-3.4); Absolute Monocyte Count 1.04 10^3/uL (0.1-0.8); Absolute Neutrophil Count 6.01 10^3/uL (1.2-6.7); Basophils % 0.9; Eosinophils % 0.1; HCT 40.6 % (40.0-50.0); Immature Grans % 0.3; Lymphocytes % 17.5; MCHC 34.5 % (32.0-36.0); MCV 92.9 fL (80-95); MPV 11.5 fL (8.0-11.0); Neutrophils % 69.2; Nucleated RBC 1 %; Platelet Count 106 10^3/uL (130-400); RBC 4.37 10^6/uL (4.36-5.78); RDW 16.3 % (11.8-14.1); RDW-SD 55.4 fL; WBC 8.69 10^3/uL (4.4-10.8)
[2020-05-30 09:06] LABS: Bilirubin Negative (Negative); Blood Moderate (Negative); Clarity Clear (Clear); Glucose Negative (Negative); Ketones Trace mg/dL (Negative); Leukocyte Esterase Negative (Negative); Nitrite Negative (Negative); Specific Gravity >= 1.030 (1.005-1.025)
[2020-05-30 09:08] LABS: INR 3.7 (0.9-1.1); Prothrombin Time 36.1 sec (9.3-11.0)
[2020-05-30 09:14] LABS: ALT 76 U/L (16-63); AST 120 U/L (15-37); Albumin 3.6 g/dL (3.4-5.0); Alkaline Phosphatase 125 U/L (46-116); Anion Gap 12.9 mmol/L (3-11); BUN 8 mg/dL (7-18); Bilirubin, Total 0.4 mg/dL (0.2-1.0); CO2 27.1 mmol/L (21.0-32.0); Calcium 7.7 mg/dL (8.5-10.1); Chloride 99 mmol/L (98-107); ETHANOL BLOOD 182.3 mg/dL (<3); Glucose 103 mg/dL (74-106); Magnesium 1.5 mg/dL (1.8-2.4); Potassium 3.3 mmol/L (3.5-5.1); Sodium 139 mmol/L (136-145); Total Protein 7.6 g/dL (6.4-8.2)
[2020-05-30 09:15] LABS: *AMPHETAMINES SCREEN URINE Negative (Negative); *BARBITURATES SCREEN URINE Negative (Negative); *BENZODIAZEPINES SCREEN URINE Negative (Negative); Cannabinoids THC Negative (Negative); Cocaine Screen,Urine Negative (Negative); METHADONE URINE SCREEN Negative (Negative); OPIATES URINE SCREEN Negative (Negative)
[2020-05-30 09:16] LABS: Troponin I < 0.05 ng/mL (<0.06)
[2020-05-30 09:16] LABS: Bacteria Few HPF (Negative); C & S Indicated? No; Casts 0-2 Coarse Granular LPF (Negative); Crystals Negative HPF (Negative); Epithelial Cells Rare HPF (Negative); Mucus Heavy (Negative); RBC >50 HPF (0-2); WBC 0-2 HPF (0-5)
[2020-05-30 09:17] LABS: Tricyclic Antidepressants Negative (Negative)
--- NOTE | 2020-05-30 09:28 | NUR.NOTE ---
Nursing Note- Dose confirmed with [facility], 16/8 mg suboxone daily. Dose given here per provider. Pt t be admitted, [facility] aware @[phone].
[2020-05-30] MEDS: MAGNESIUM SULFATE 8.12 MEQ, MULTIVITAMIN 10 ML, THIAMINE 100 MG, FOLIC ACID 1 MG in Nor... 168.867 MG IV (09:31)
[2020-05-30] MEDS: Buprenorphine/Naloxone 8 mg/2 mg FILM 2 EACH SL (09:31)
--- NOTE | 2020-05-30 09:37 | PDOC.ERCMPRO ---
- If Service Date Differs Date of service: 05/30/20 Time of Service: 09:37 Care Management Progress Note CM sent a last dose letter to [facility], stating that Marlon received his Suboxone 8Mg-2 Mg Sl Film today, 05/30/20 at 9:22am. Pt now being admitted for ETOH withdrawal. CM will follow up with pt, and will send appropriate last dose letter prior to discharge.
[2020-05-30] MEDS: diazePAM 10 MG/2 ML SYR IVP ×2 (09:52→11:58)
[2020-05-30] MEDS: Nicotine 14 MG/24 HR PATCH TD (11:52)
[2020-05-30 12:30] LABS: Troponin I < 0.05 ng/mL (<0.06)
[2020-05-30] MEDS: LORazepam 2 MG/ML VIAL IVP (14:02)
[2020-05-30] MEDS: Normal Saline Flush 10 ML SYR IVP ×2 (14:05→14:55)
[2020-05-30] MEDS: PHENobarbital 130 MG/ML VIAL 260 MG IVP ×2 (14:54→16:46)
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
[2020-05-30] MEDS: PHENobarbital 130 MG/ML VIAL IVP ×3 (15:30→22:39)
--- NOTE | 2020-05-30 17:05 | DI.CT_ITS ---
EXAM: CT HEAD WO CLINICAL HISTORY: agitation; alcohol withdrawal; s/p head contusion. TECHNIQUE: Imaging Protocol: Axial computed tomography images with coronal and sagittal reformatted images were created and reviewed COMPARISON: No exams were available for comparison FINDINGS: Ventricles and Extra axial spaces: Normal in size and morphology for the patient's age. Hemorrhage: None. Cerebral parenchyma: Normal. Midline shift: None. Brainstem/Cerebellum: Normal. Calvarium: Normal. Visualized Paranasal sinuses/Mastoids: Mucosal thickening in the right maxillary sinus. Postsurgical changes of a right mastoidectomy. Remaining visualized paranasal sinuses are clear. Soft Tissues: Unremarkable. IMPRESSION: No acute intracranial process. RADIATION DOSE DELIVERED: 796.62mGy.cm Total DLP DATA REPOSITORY: All CT scans at this facility are submitted to the National Radiology Data Registry (NRDR) Dose Index Registry (DIR) with the [employer] ([employer]). RADIATION OPTIMIZATION: All CT scans at this facility use at least one of these dose optimization te chniques: automated exposure control; mA and/or kV adjustment per patient size (includes targeted exa ms where dose is matched to clinical indication); or iterative reconstruction.
--- NOTE | 2020-05-30 17:25 | DI.VRAD_ITS ---
PROCEDURE INFORMATION: Exam: CT Head Without Contrast Exam date and time: 05/30/2020 4:24 PM Age: 40 years old Clinical indication: Injury or trauma; Fall; Blunt trauma (contusions or hematomas); Patient HX: Agitation; Alcohol withdrawal; S/P head contusion TECHNIQUE: Imaging protocol: Computed tomography of the head without contrast. COMPARISON: CT HEAD WO 12/01/2018 4:11 PM FINDINGS: Brain: There is no evidence of acute hemorrhage within the brain parenchyma or the subarachnoid space. No abnormal attenuation is noted within the brain parenchyma. Cerebral ventricles: There is no significant ventricular effacement or midline shift. The ventricular system is normal in size and distribution. Bones/joints: The skull is normal. No skull fracture. Paranasal sinuses: Mild lateral right maxillary sinus mucoperiosteal thickening. The remainder of the visualized paranasal sinuses are clear. Hypoplastic frontal sinuses. Mastoid air cells: Stable postoperative changes of right mastoidectomy. Left mastoid air cells are well pneumatized Orbital cavity: The orbits are normal. Soft tissues: The extracranial soft tissues are normal. IMPRESSION: 1. No acute intracranial abnormality. 2. No skull fracture. Dictated and Authenticated by: Adi Ng MD. Ordering:[facility] Apryl Garcia MD
[2020-05-30] MEDS: PHENobarbital 130 MG/ML VIAL 260 MG IM ×2 (17:50→18:41)
[2020-05-30] MEDS: POTASSIUM CHLORIDE/0.9% NACL 1,000 ML 125 MEQ IV (21:30)
[2020-05-30] MEDS: POTASSIUM CHLORIDE 20 MEQ/100 ML BAG 50 MEQ IVPB (21:30)
[2020-05-30] MEDS: Gabapentin 300 MG CAP 900 MG PO (21:36)
[2020-05-30] MEDS: Magnesium Oxide 400 MG TAB 800 MG PO (21:37)
[2020-05-30] MEDS: MAGNESIUM SULFATE 2 GM/50 ML BAG IVPB (21:41)
[2020-05-31] VITALS (43 sets, daily range): BP systolic 138–177; BP diastolic 71–119; PULSE 75–116; RESP 12–24; TEMP 36.3–37.2; O2SAT 84–96
[2020-05-31] MEDS: POTASSIUM CHLORIDE 20 MEQ/100 ML BAG 50 MEQ IVPB (00:06)
[2020-05-31 07:09] LABS: INR 2.4 (0.9-1.1); Prothrombin Time 23.2 sec (9.3-11.0)
[2020-05-31 07:19] LABS: ALT 62 U/L (16-63); AST 90 U/L (15-37); Albumin 3.4 g/dL (3.4-5.0); Alkaline Phosphatase 130 U/L (46-116); Anion Gap 10.8 mmol/L (3-11); BUN 8 mg/dL (7-18); Bilirubin, Direct 0.17 mg/dL (0.00-0.20); Bilirubin, Total 0.9 mg/dL (0.2-1.0); CO2 24.2 mmol/L (21.0-32.0); CREATININE 0.84 mg/dL (0.70-1.30); Calcium 7.8 mg/dL (8.5-10.1); Chloride 101 mmol/L (98-107); Glucose 75 mg/dL (74-106); Magnesium 1.8 mg/dL (1.8-2.4); PHOSPHORUS 2.4 mg/dL (2.6-4.7); Potassium 4.1 mmol/L (3.5-5.1); Sodium 136 mmol/L (136-145); Total Protein 7.2 g/dL (6.4-8.2)
[2020-05-31] MEDS: Atorvastatin 10 MG TAB PO (08:50)
[2020-05-31] MEDS: Buprenorphine/Naloxone 8 mg/2 mg FILM 2 EACH SL (09:00)
[2020-05-31] MEDS: Gabapentin 300 MG CAP 900 MG PO ×3 (09:01→20:08)
[2020-05-31] MEDS: Folic Acid 1 MG TAB PO (09:01)
[2020-05-31] MEDS: Lisinopril 5 MG TAB PO (09:01)
[2020-05-31] MEDS: Metoprolol CR 50 MG TABCR PO (09:02)
[2020-05-31] MEDS: Magnesium Oxide 400 MG TAB 800 MG PO ×2 (09:02→20:07)
[2020-05-31] MEDS: Multivitamin TAB 1 TAB PO (09:02)
[2020-05-31] MEDS: Sertraline 50 MG TAB 100 MG PO (09:02)
[2020-05-31] MEDS: Thiamine 100 MG TAB PO (09:03)
[2020-05-31] MEDS: Fluticasone NASAL SPRAY 16 GM BTL NS (09:06)
[2020-05-31] MEDS: PHENobarbital 130 MG/ML VIAL IVP (10:29)
--- NOTE | 2020-05-31 10:58 | NUR.NOTE ---
[facility] to request a diet order for patient. MD obliges in minutes with a regular diet order.Nursing Note:
--- NOTE | 2020-05-31 11:09 | PHACLINREV_ITS ---
Pharmacy Admission Review - Admission Clinical Review (Last Updated 05/30/20 @ 17:50 by Jose Pink) HTN (hypertension) (Acute) Alcohol withdrawal (Acute) Elevated transaminase level (Acute) Supratherapeutic INR (Acute) Penicillins Allergy (Unknown, Unverified 05/30/20 09:12) tolerating Oxacillin this admission 06/24/16 per latex Allergy (Unverified 05/30/20 09:12) Height 5 ft 8 in Weight 91.9 kg - Renal Dosing Renal Dosing: BUN 8 mg/dL (7-18) 05/31/20 06:30 Creatinine 0.84 mg/dL (0.70-1.30) 05/31/20 06:30 Medications needing adjustments: Reviewed (Crcl ~113 mL/min, likely greater if use adjusted body weight. Current meds okay.) - Anticoagulation Anticoagulation: Hgb 14.0 g/dL (13.5-17.5) 05/30/20 08:42 Hct 40.6 % (40.0-50.0) 05/30/20 08:42 Plt Count 106 10^3/uL (130-400) L D 05/30/20 08:42 INR 2.4 (0.9-1.1) H D 05/31/20 06:30 Creatinine 0.84 mg/dL (0.70-1.30) 05/31/20 06:30 DVT Prohphylaxis: N/A Therapeutic Anticoagulation: Reviewed Medications: Warfarin - Opiate Usage Evaluate Pain Scale/Pains Meds: Intervened (contacted [facility] to verify dosing buprenorphine/naloxone 16 mg/4 mg) Scheduled Bowel Reg ordered if on Opiates?: No (will mention to provider) - Relevant Labs Sodium 136 mmol/L (136-145) 05/31/20 06:30 Potassium 4.1 mmol/L (3.5-5.1) D 05/31/20 06:30 Chloride 101 mmol/L (98-107) 05/31/20 06:30 Phosphorus 2.4 mg/dL (2.6-4.7) L 05/31/20 06:30 Magnesium 1.8 mg/dL (1.8-2.4) 05/31/20 06:30 Electrolytes, C-Reactive P, ESR: Reviewed - DM Control DM Control: Glucose 75 mg/dL (74-106) 05/31/20 06:30 Insulin Dosing: N/A - Heart Failure/ME Heart Failure/ME: Troponin I < 0.05 ng/mL (<0.06) 05/30/20 11:45 EF%, PAO's, B-Blockers, Diuretics: Reviewed - BP Control BP Control: Blood Pressure [Left Arm] 163/98 Blood Pressure 159/95 Blood Pressure 171/110 Blood Pressure 160/104 Blood Pressure 177/105 Blood Pressure 155/114 Blood Pressure 172/107 Blood Pressure 176/92 If elevated: Reviewed (has been elevated since admission) - Qtc Review If Elevated: N/A - IV to PO Switch IV Medications: Reviewed - Home Meds Home Med List reviewed: Reviewed (multiple AP[employer]ICE [employer] HAND depressants; recommended to avoid the use of multiple APPRENTICE [employer]INTER HAND depressants when possible.) Relevent Home Meds Not ordered & why?: All home meds are ordered. Warfarin ordered at lower dose than home dose. - Current meds Current Medication Order Review: Intervened (Adjusted the magnesium administration time so separate from gabapentin due to interaction.) - Comments Comments/Follow Ups: Watch BP, CIWA, INR, plt, mag, phos, and for med changes (warfain dosing, need of BM meds).
--- NOTE | 2020-05-31 13:03 | NUR.NOTE ---
RN takes down 22 gauge dressing in right hand and repositions cannula so that it is patent again. New dressing applied and maintenance fluid is recommenced.Nursing Note:
--- NOTE | 2020-05-31 13:05 | NUR.NOTE ---
Nursing Note: Patient is sleeping quietly. Vital signs are stable.
[2020-05-31] MEDS: Polyethylene Glycol 3350 17 GM PACKET PO (13:58)
[2020-05-31] MEDS: POTASSIUM CHLORIDE/0.9% NACL 1,000 ML 125 MEQ IV (14:01)
--- NOTE | 2020-05-31 14:29 | W.PM.PROGNOT ---
Date of Service Date of service: 05/31/20 Time of Service: 14:29 Assessment and Plan Assessment and plan (1) Alcohol withdrawal: Status: Acute Assessment and plan: Cont prn phenobarbitol while mainataining a RASS scale of 0 to -1. Cont thiamine, folate, MVI. Qualifiers: Complication of substance-induced condition: uncomplicated Qualified Code(s): F10.230 - Alcohol dependence with withdrawal, uncomplicated (2) Elevated transaminase level: Status: Acute Assessment and plan: Trend (3) History of drug abuse: Status: Chronic Assessment and plan: Cont home suboxone and gabapentin. (4) Chronic anticoagulation: Status: Chronic Assessment and plan: On coumadine. INR 3.7 on admision; coumadin held INR now 2.4 Pharmacy to dose. (5) HTN (hypertension): Status: Acute Assessment and plan: Improved. Likely elevated d/t alcohol withdrawal. Cont home dose of lisinopril and Metoprolol XL Qualifiers: Hypertension type: essential hypertension Qualified Code(s): I10 - Essential (primary) hypertension Subjective Subjective Patient reports: no new complaints, feels better and tolerating a regular diet; denies shortness of breath Interval history since last seen: Slept much of the night. Some irritability but no behavioral issues. Exam Const General: no acute distress Nutritional Appearance: overweight Orientation: awake Resp Effort & Inspection: normal respiratory effort Auscultation: clear to auscultation bilaterally Cardio Rate: regular rate Rhythm: regular rhythm Heart Sounds: murmur GI Inspection: normal to inspection and obesity Palpation: soft Auscultation: normal bowel sounds Neuro General: moves all extremities Extrem General: no pedal edema and no calf tenderness Objective Last Vital Signs Temp 37.2 C 05/31/20 14:26 Pulse 83 05/31/20 14:26 Resp 12 05/31/20 14:26 BP 138/85 05/31/20 14:26 Pulse Ox 96 05/31/20 14:26 Laboratory Results - last 24 hr 05/30/20 05/31/20 05/31/20 23:50 06:30 06:30 PT 23.2 H D INR 2.4 H D Sodium 136 Potassium 4.1 D Chloride 101 Carbon Dioxide 24.2 Anion Gap 10.8 BUN 8 Creatinine 0.84 Estimated GFR/1.73 m2 >= 60.00 Glucose 75 Calcium 7.8 L Phosphorus 2.4 L Magnesium 1.8 Total Bilirubin 0.9 Conjugated Bilirubin 0.17 AST 90 H ALT 62 Alkaline Phosphatase 130 H Total Protein 7.2 Albumin 3.4 Phenobarbital Cancelled
--- NOTE | 2020-05-31 14:37 | NUR.NOTE ---
Patient resting in bed and is easily arousable to name. Patient is alert and oriented.Nursing Note: CIWA score is 6.
[2020-05-31] MEDS: Normal Saline Flush 10 ML SYR IVP ×5 (14:40→14:44)
--- NOTE | 2020-05-31 17:45 | PDOC.CMIN ---
- If Service Date Differs Date of service: 05/31/20 Time of Service: 17:49 Care Management Initial Assess REASON FOR HOSPITALIZATION:: Alcohol Withdrawal PAST MEDICAL HISTORY/PAST SURGICAL HISTORY:: Medical History. Alcohol abuse. Bipolar affective disorder. Brain abscess. CVA (cerebral vascular accident). DIC (disseminated intravascular coagulation). Endocarditis due to Staphylococcus. History of intravenous drug abuse. HTN (hypertension). PTSD (post-traumatic stress disorder). Septic arterial embolism. Surgical History. H/O aortic valve replacement. History of appendectomy. History of splenectomy. Tympanic membrane disorder. TM removal PREVIOUS FUNCTIONAL STATUS/SOCIAL/FAMILY SUPPORTS:: Marlon has been staying in local hotels, but does not currently have a permanent residence. His father's address is listed, but per report, he is no longer living with him. He is independent with his ADL's. CURRENT FUNCTIONAL STATUS:: Marlon is currently on precautions awaiting a Covid test result. CM spoke to his RN, who had lengthy discussions with him regarding his care. Marlon stated that he would like to remain at [facility] while he withdraws from alcohol. CM will call the manager disaster recovery to discuss treatment options after this acute hospital stay. CM will continue to follow. ADVANCE DIRECTIVES:: None on file. Has patient been provided with info about the portal/API?: No Did the patient sign up for the portal?: No CODE STATUS:: Full Code INSURANCE COVERAGE / FINANCIAL ISSUES:: [employer] CURRENT HOME/COMMUNITY SERVICES/EQUIPMENT:: No known current services or equipment. PRIMARY CARE PHYSICIAN:: Radha Tracey POTENTIAL DISCHARGE NEEDS:: Evaluations for further needs, follow up appointments PATIENT/FAMILY EDUCATION NEEDS:: Review discharge instructions regarding activity levels and medications, discussion of self care needs including ask me three. ANTICIPATED BARRIERS TO DISCHARGE:: None identified at this time. TRANSPORTATION:: Via private vehicle by family vs RCT PLAN:: Anticipate Marlon will return to the community when medically cleared. CM will contact the manager disaster recovery to help assist with Marlon remaining alcohol free in the community. He will transport via private vehicle by family vs RCT. He will follow up with his PCP and discharge plan of care. CM will continue to follow.
[2020-05-31] MEDS: Warfarin 5 MG TAB 10 MG PO (20:07)
[2020-05-31] MEDS: diphenhydrAMINE 25 MG CAP 50 MG PO (20:49)
[2020-05-31] MEDS: PHENobarbital 64.8 MG TAB 129.6 MG PO (21:03)
--- NOTE | 2020-05-31 23:34 | NUR.NOTE ---
2030-pt turned over in bed and was lying on his IV tubing and causing the pump to say downstream obstruction. nurse entered patient's room with some 2000 po medications and spoke to pt to wake up and turn over but he did not wake up. nurse touched pt on the shoulder and again asked him to wake and turn over. pt awoke with a start and became angry and called this nurse an old bitch and stated he was leaving. he sat up and pulled his iv out, then got up and got dressed. nurse made an attempt to reason with him to stay without success. Dr. Pink came into the ICU at this time. this nurse spoke with him and described situation. he went into patient's room and spoke with him. when finished, he ordered po phenobarb and that we could leave out iv. he also stated that pt wanted a different nurse. report given to Manisha Whelan RN who became his nu7rse. Nursing supervisor telephone clerks notified and sent in med/surg nurse, Alaina Otero RN who worked to help us cath up on pt care. pt was given po phenobarb and remained calm throughout the remainder of the shift.
[2020-06-01 06:34] LABS: ALT 84 U/L (16-63); AST 150 U/L (15-37); Albumin 3.3 g/dL (3.4-5.0); Alkaline Phosphatase 208 U/L (46-116); Anion Gap 8.3 mmol/L (3-11); BUN 10 mg/dL (7-18); Bilirubin, Total 0.8 mg/dL (0.2-1.0); CO2 25.7 mmol/L (21.0-32.0); CREATININE 0.82 mg/dL (0.70-1.30); Calcium 8.2 mg/dL (8.5-10.1); Chloride 100 mmol/L (98-107); Glucose 90 mg/dL (74-106); Sodium 134 mmol/L (136-145); Total Protein 7.3 g/dL (6.4-8.2)
[2020-06-01 06:37] LABS: INR 1.6 (0.9-1.1); Prothrombin Time 15.5 sec (9.3-11.0)
[2020-06-01 09:09] LABS: SARS-CoV-2 RNA Not Detected (NotDetected); SARS-CoV-2 RNA Source Nasal/Nares
== END 2020-06-01 06:30 | disposition left against medical advice (07) | DRG 894 ==
LOC: ER 11:06 → ICU 13:23
PROVIDERS: Family Medicine; Admitting Provider Internal Medicine; Emergency Provider Registered Nurse Emergency; PCP Family Medicine; Visit Provider Internal Medicine
DX: F10.230 Alcohol dependence with withdrawal, uncomplicated (principal); F11.20 Opioid dependence, uncomplicated; Z86.73 Personal history of transient ischemic attack (TIA), and cerebral infarction without residual deficits; I10 Essential (primary) hypertension; F43.10 Post-traumatic stress disorder, unspecified; Z95.2 Presence of prosthetic heart valve; Z79.01 Long term (current) use of anticoagulants; F17.210 Nicotine dependence, cigarettes, uncomplicated; F19.11 Other psychoactive substance abuse, in remission; Z90.81 Acquired absence of spleen; Z11.59 Encounter for screening for other viral diseases
CPT/HCPCS: 36415; 80048; 80053; 80076; 80307; 96361; 96365; 96366; 96372; 96375; 96376; 99223; 99232; 99285; U0003; 70450; 71045; 80184; 80320; 81003; 81015; 83735; 84100; 84484; 85025; 85610; J2060; J2560; J3360; J3480

== ENCOUNTER 2020-06-09 09:59 | Inpatient (IN) | payer MEDICAID, SELFPAY ==
[2020-06-09] VITALS (107 sets, daily range): BP systolic 128–195; BP diastolic 75–151; PULSE 69–130; RESP 10–26; TEMP 36.5–37; O2SAT 86–99
--- NOTE | 2020-06-09 10:14 | W.ED.GENAD ---
Discharge Plan Disposition Patient Disposition: [facility] INPATIENT Condition: Serious Discharge Details Clinical Impression: Alcohol withdrawal Admit Date/Time: 06/09/20 12:01 Admit Provider: Kaila Baptiste Attending Provider: Kaila Baptiste Primary Care Provider: Radha Tracey ED Provider: Shelby Franz Discharge Data Discharge Date/Time-TO BE ENTERED AT DEPARTURE: 06/09/20 16:19 Medical Decision Making 40-year-old male presents to the ER with chief complaint of alcohol withdrawal symptoms. He states his last drink was approximately 24 hours ago. He was tremulous and diaphoretic upon arrival. Hypertensive. Heart rate is in the 90s. He reports that he needs. He was admitted to the hospital approximately 10 days ago for alcohol withdrawal and was discharged to the community and he states that he has not had any follow-up since being discharged. She states that he needs a Covid test in order to get into [facility] he has been taking Suboxone last dose was this morning states was 8 mg. 1058: Spoke with Concepcion with who got in touch with [facility] who reports that they need a referral sent, a covid test and patient needs to stay in the emergency department until the Covid test is negative they did state to her that she cannot go home on quarantine but he would need to stay in the facility. Concepcion gericare aide will send over referral for alcohol detox. 1126: Hospitalist paged for admission pending Covid test and transfer to [facility] for alcohol detox and rehab. 1148: Spoke with Dr. Baptiste who will evaluate ICU bed status and call back. 1201: Spoke with Dr. Baptiste again who accepts patient for admission pending bed placement. Patient is dry heaving in the room and CIWA score recheck is 25. Discussed phenobarbital with Dr. Baptiste she agrees with [facility] and 25 mg of Phenergan order placed. [facility], repeat Magnesium, Lipase and TSH level. Orders placed. EXAM: XR PORTABLE CHEST AP CLINICAL HISTORY: mitral valve replacement, chf TECHNIQUE: 2D digital imaging was performed. COMPARISON: CR XR PORTABLE CHEST AP from 01/20/2019 CR XR PORTABLE CHEST AP from 05/30/2020 FINDINGS: MEDIASTINUM: Normal. HEART: Normal. There is again seen of cardiac valvular prosthesis. PULMONARY VASCULATURE: Normal. LUNGS: Clear. PLEURAL SPACE: No pleural effusion or pneumothorax. BONE:Within normal limits for the patient's age. Status post sternotomy. OTHER FINDINGS:Normal. IMPRESSION: No acute pulmonary findings. 1413: At this time we are awaiting bed availability, patient is much more comfortable after phenobarbital. Blood pressure is decreased heart rate has decreased patient is able to sleep a little bit. 1600: Patient is still waiting for bed availability in the emergency department, remained hemodynamically stable, is awake and talking to father on the telephone. HPI General Mode of arrival: ambulatory. Date/Time Provider Initiated Documentation: 06/09/20 10:02. Limitations to Documentation: no limitations. Information obtained by: patient. HPI Narrative: 40-year-old male presents to the ER with chief complaint of alcohol withdrawal symptoms. He states his last drink was approximately 24 hours ago. He was tremulous and diaphoretic upon arrival. Hypertensive. Heart rate is in the 90s. He reports that he needs. He was admitted to the hospital approximately 10 days ago for alcohol withdrawal and was discharged to the community and he states that he has not had any follow-up since being discharged. She states that he needs a Covid test in order to get into [facility] he has been taking Suboxone last dose was this morning states was 8 mg. Related Data Home Medications Medication Instructions Recorded Confirmed warfarin 15 mg PO DAILY 02/16/16 06/09/20 sertraline 150 mg PO DAILY 04/02/16 06/09/20 albuterol sulfate [ProAir HFA] 2 puff INHALATION Q4H PRN PRN #1 01/03/18 06/09/20 inh Narcan 4 mg NS DIRECTED #2 spray 01/13/18 06/09/20 buprenorphine-naloxone [Suboxone] 16 film SUBLINGUAL DAILY AM 12/01/18 06/09/20 atorvastatin 10 mg PO DAILY 05/30/20 06/09/20 fluticasone propionate [Flonase] 1 spray INTRANASAL DAILY 05/30/20 06/09/20 metoprolol succinate 50 mg PO DAILY 05/30/20 06/09/20 gabapentin 1,200 mg PO TID 06/09/20 06/09/20 Previous Rx's Medication Instructions Recorded albuterol sulfate [ProAir HFA] 2 puff INHALATION Q4H PRN PRN #1 01/03/18 inh Narcan 4 mg NS DIRECTED #2 spray 01/13/18 Allergies Allergy/AdvReac Type Severity Reaction Status Date / Time Penicillins Allergy Unknown tolerating Unverified 06/09/20 13:03 Oxacillin this admission 06/24/16 per latex Allergy Unverified 06/09/20 13:03 General Stated Complaint: ETOHWithdr JEREMIAS: 2 Review of Systems Narrative: Constitutional: Negative for weight loss, alert and oriented, well groomed, normal body habitus, appears uncomfortable. HEENT: Denies trauma, headaches, blurry vision, nasal discharge, sore throat, trouble swallowing. Chest: Denies chest pain, palpitations, irregular rhythm, hypertension. Respiratory: Denies Shortness of breath, cough, hemoptysis. GI: Denies abdominal pain, vomiting, constipation. : Denies dysuria, hematuria, flank pain, rectal bleeding. Neuro: Denies dizziness, blurry vision, weakness, syncope, or facial numbness. Hematologic: Denies easy bruising, intolerance to heat or cold, hair loss. [facility] Medical History (Updated 06/09/20 @ 18:35 by Kaila Baptiste MD) Alcohol abuse Asthma Bipolar affective disorder Brain abscess CVA (cerebral vascular accident) DIC (disseminated intravascular coagulation) Endocarditis due to Staphylococcus History of intravenous drug abuse HTN (hypertension) Opioid dependence PTSD (post-traumatic stress disorder) Septic arterial embolism Surgical History (Updated 06/09/20 @ 18:12 by Kaila Baptiste MD) H/O mitral valve replacement with mechanical valve [place] [facility] [place] 2.5-3.5 History of appendectomy 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 Exam Narrative Exam Narrative: Constitutional: Alert and oriented x3. Appears stated age. Normal body habitus. Diaphoretic Head: Normocephalic, no trauma. Eyes: Pupils PERRLA, Red reflex noted, EOM's intact. Eyelids symmetrical without lesions, discharge, or swelling. ENT: Bilateral TM's WNL, External ear normal to inspection, no mastoid TTP, swelling, or erythema, Nasal turbinates WNL, no nasal discharge. Normal dentition, Posterior pharynx WNL, no exudate. Chest: RRR, Normal S1, S2, distal pulses intact. Hypertensive. Resp: Lungs clear to auscultation bilaterally, no wheezes, rales, or rhonchi. Musculoskeletal: Normal gait, 5/5 strength to all four extremities. Skin: No suspicious rashes or lesions. He has a healing periorbital contusion on his right eye. Capillary refill less than 2 sec. Neurologic: Cranial nerves II-XII intact. Alert and oriented x 3. DTR's intact. Bilateral lower extremity tremors noted Hematologic/Lymphatic: No ecchymosis, no lymphadenopathy. Course Vital Signs Vital signs: Vital Signs Temperature 36.7 C 06/09/20 10:06 Pulse 93 H 06/09/20 10:06 Respiratory Rate 18 06/09/20 10:06 Blood Pressure 192/106 H 06/09/20 10:06 Pulse Oximetry 92 06/09/20 10:06 Temperature 36.7 C 06/09/20 10:06 Temperature Source Skin 06/09/20 10:06 Pulse 93 H 06/09/20 10:06 Respiratory Rate 18 06/09/20 10:06 Respiratory Effort 06/09/20 10:06 Blood Pressure 192/106 H 06/09/20 10:06 Blood Pressure Position Supine 06/09/20 10:06 Pulse Oximetry 92 06/09/20 10:06 Oxygen Delivery Method Room Air 06/09/20 10:06 Oxygen Flow Rate 0 06/09/20 10:06 Pain Level 8 06/09/20 10:06 Comment 06/09/20 10:06
[2020-06-09] MEDS: diazePAM 10 MG/2 ML SYR IVP (10:33)
[2020-06-09 10:34] LABS: Abs Immature Grans 0.19 10^3/uL (0.0-0.06); Absolute Basophil Count 0.14 10^3/uL (0.0-0.2); Absolute Eosinophil Count 0.01 10^3/uL (0.0-0.7); Absolute Neutrophil Count 7.05 10^3/uL (1.2-6.7); Basophils % 1.2; Eosinophils % 0.1; HCT 38.5 % (40.0-50.0); HGB 12.8 g/dL (13.5-17.5); Immature Grans % 1.7; Lymphocytes % 12.4; MCH 32.1 pg (27.0-33.0); MCHC 33.2 % (32.0-36.0); MCV 96.5 fL (80-95); MPV 10.3 fL (8.0-11.0); Monocytes % 22.8; Neutrophils % 61.8; RBC 3.99 10^6/uL (4.36-5.78); RDW 17.7 % (11.8-14.1); RDW-SD 62.4 fL; WBC 11.41 10^3/uL (4.4-10.8)
[2020-06-09 10:37] LABS: Absolute Lymphocyte Count 1.41 10^3/uL (1.2-3.4)
[2020-06-09 10:49] LABS: Platelet Count 381 10^3/uL (130-400)
[2020-06-09 10:52] LABS: Anisocytosis 2+; Diff Comment Agrees w/ Instrument; Macrocytosis 1+; Nucleated RBC 12 %; Polychromasia Present
[2020-06-09 10:53] LABS: ALT 80 U/L (16-63); AST 102 U/L (15-37); Albumin 3.9 g/dL (3.4-5.0); Alkaline Phosphatase 145 U/L (46-116); Anion Gap 8.3 mmol/L (3-11); BUN 6 mg/dL (7-18); Bilirubin, Total 0.5 mg/dL (0.2-1.0); CO2 29.7 mmol/L (21.0-32.0); CREATININE 1.08 mg/dL (0.70-1.30); Chloride 100 mmol/L (98-107); ETHANOL BLOOD 4.8 mg/dL (<3); Glucose 109 mg/dL (74-106); Lipase 831 U/L (73-393); Poikilocytes 2+; Potassium 3.7 mmol/L (3.5-5.1); Sodium 138 mmol/L (136-145); Total Protein 7.9 g/dL (6.4-8.2)
[2020-06-09 10:57] LABS: Salicylate 4.1 mg/dL (2.8-20.0)
[2020-06-09 10:58] LABS: Acetaminophen < 2 ug/mL (10-30)
[2020-06-09] MEDS: MAGNESIUM SULFATE 8.12 MEQ, MULTIVITAMIN 10 ML, THIAMINE 100 MG, FOLIC ACID 1 MG in Nor... 168.867 MG IV (11:00)
[2020-06-09 11:04] LABS: Bilirubin Small (Negative); Blood Trace-intact (Negative); Clarity Clear (Clear); Glucose Negative (Negative); Ketones Negative (Negative); Leukocyte Esterase Negative (Negative); Nitrite Negative (Negative); pH 8.5 (5-8)
[2020-06-09] MEDS: Normal Saline Flush 10 ML SYR IVP (11:10)
[2020-06-09 11:13] LABS: *AMPHETAMINES SCREEN URINE Negative (Negative); *BARBITURATES SCREEN URINE POSITIVE (Negative); *BENZODIAZEPINES SCREEN URINE POSITIVE (Negative); Cannabinoids THC POSITIVE (Negative); Cocaine Screen,Urine Negative (Negative); METHADONE URINE SCREEN Negative (Negative); OPIATES URINE SCREEN Negative (Negative)
[2020-06-09 11:15] LABS: Tricyclic Antidepressants Negative (Negative)
[2020-06-09 11:17] LABS: INR 1.2 (0.9-1.1); Prothrombin Time 11.6 sec (9.3-11.0)
[2020-06-09 11:21] LABS: Bacteria Rare HPF (Negative); Epithelial Cells Rare HPF (Negative); WBC 0-2 HPF (0-5)
[2020-06-09 11:22] LABS: C & S Indicated? No; Casts Negative LPF (Negative); Mucus Moderate (Negative)
--- NOTE | 2020-06-09 11:36 | PDOC.ERCMPRO ---
- If Service Date Differs Date of service: 06/09/20 Time of Service: 11:36 Care Management Progress Note Marlon presents to the ED for a referral and covid testing, so he can be admitted to [facility] for alcohol detox. At the request of ED provider, NATHEN contacts the [facility] to inquire if a referral is needed. NATHEN is advised that a referral, medical clearance, and a negative covid test are required for admission for alcohol detox. NATHEN is also informed that patient has to be transferred from [facility] once a bed is available and cannot go home to quarantine while he awaits placement. CM coordinates a referral to the [facility] for alcohol detox. Covid test results will be forwarded when available.
[2020-06-09] MEDS: PHENobarbital 130 MG/ML VIAL 260 MG IVP (12:00)
--- NOTE | 2020-06-09 12:30 | DI.RAD_ITS ---
EXAM: XR PORTABLE CHEST AP CLINICAL HISTORY: mitral valve replacement, chf TECHNIQUE: 2D digital imaging was performed. COMPARISON: CR XR PORTABLE CHEST AP from 01/20/2019 CR XR PORTABLE CHEST AP from 05/30/2020 FINDINGS: MEDIASTINUM: Normal. HEART: Normal. There is again seen of cardiac valvular prosthesis. PULMONARY VASCULATURE: Normal. LUNGS: Clear. PLEURAL SPACE: No pleural effusion or pneumothorax. BONE:Within normal limits for the patient's age. Status post sternotomy. OTHER FINDINGS:Normal. IMPRESSION: No acute pulmonary findings. DATA REPOSITORY: RADIATION DOSE DELIVERED:
[2020-06-09] MEDS: Enoxaparin 100 MG/ML SYR SC (12:40)
[2020-06-09] MEDS: Albuterol/Ipratropium 3 ML UPD VIAL UPD (12:40)
--- NOTE | 2020-06-09 13:15 | RT.EKG_ITS ---
APPROVED REPORT Exam: Resting ECG Patient Location: E HR:81 bpm ECG Measurements Heart Rate 81 AXIS KS 218 P 62 QRSd 86 QRS 43 QT 393 T 91 QTc 456 Conclusion Sinus rhythm...normal P axis, V-rate 60- 99 Prolonged KS interval...KS >210, V-rate 50- 90 Probable left atrial enlargement...P >50mS, <-0.10mV V1 Abnormal T, consider ischemia, anterior leads...T <-0.20mV, V2-V4 I have reviewed and interpreted ECG and agree with software generated interpretation.
[2020-06-09 14:11] LABS: Lipase 758 U/L (73-393); Magnesium 1.3 mg/dL (1.8-2.4); TSH 2.27 uIU/mL (0.36-3.74)
[2020-06-09] MEDS: PHENobarbital 130 MG/ML VIAL IVP ×3 (15:33→17:40)
--- NOTE | 2020-06-09 15:56 | NUR.NOTE ---
Nursing Note: report given at 1540 to ICU. No bed available at this time, will call when ready.
[2020-06-09] MEDS: Acetaminophen 325 MG TAB PO (16:51)
--- NOTE | 2020-06-09 17:56 | HPE_ITS ---
Date of service: 06/09/20 Time of Service: 17:56 Assessment and Plan Assessment and plan (1) Alcohol withdrawal: Status: Acute Assessment and plan: Admit to ICU with prn phenobarbital with target RASS 0-1. We will finish his banana bag at a slow rate due to presence of rales on his physical exam, and will continue on PO vitamins. Check b12/folate levels. Care management to help the patient with his disposition upon medical clearance Qualifiers: Complication of substance-induced condition: uncomplicated Qualified Code(s): F10.230 - Alcohol dependence with withdrawal, uncomplicated (2) Subtherapeutic international normalized ratio (INR): Status: Acute Assessment and plan: For a mechanical mitral valve. Target INR, per patient, is 3.5. Continue bridging with SC lovenox until INR is therapeutic. (3) Asthma: Status: Chronic Assessment and plan: provide prn albuterol. If remains rhonchorous, consider a prednisone burst (4) Opioid dependence: Status: Chronic Assessment and plan: On suboxone therapy via [facility]. He received an 8 mg film there today - and we will continue him on this dose, given co-administration with phenobarb. Normally, his dose is 16 mg. (5) Discharge planning issues: Status: Acute Assessment and plan: Full code. Homeless. Total Critical Care Time 1 hour. History of Present Illness History of Present Illness Chief Complaint: Alcohol withdrawal Narrative: Ms Cho is a 40 year old male with PMHx of alcohol abuse w/ history of severe DTs, as well as h/o mecanical mitral valve replacement on coumadin (Target INR 2.5-3.5, in his case closer to 3.5), as well as hypertension, hyperlipidemia, opioid dependence on suboxone through [facility], who had presented to [facility] ED today requesting to go to [facility] for treatment of his alcohol abuse. At the time of his presentation to the ED, his CIWA score was 27. He was treated with IV diazepam, and we were asked to admit the patient to the ICU for treatment of alcohol withdrawal. The patient states he usually drinks 1/2 gallon of vodka per day, but that he has become homeless in the last 5 days and that he had run out of vodka, so the last time he had anything to drink were 2 beers yesterday morning. The patient states that, even then, he was already feeling like withdrawing - anxiety, tremors, feeling of tingling in his entire body, and like he might have a seizure. He denies ever actually having seizures, but does endorse a history of severe DTs. While in the ED, he was also given a dose of 260 mg of phenobarbital which was immediately effective in relieving his tachycardia and symptoms of nausea/anxiety. Review of Systems All systems reviewed & are unremarkable except as noted in HPI and below [facility] Medical History (Updated 06/09/20 @ 18:35 by Kaila Baptiste MD) Alcohol abuse Asthma Bipolar affective disorder Brain abscess CVA (cerebral vascular accident) DIC (disseminated intravascular coagulation) Endocarditis due to Staphylococcus History of intravenous drug abuse HTN (hypertension) Opioid dependence PTSD (post-traumatic stress disorder) Septic arterial embolism Surgical History (Updated 06/09/20 @ 18:12 by Kaila Baptiste MD) H/O mitral valve replacement with mechanical valve 2004 at [facility] [place] Target INR 2.5-3.5 History of appendectomy 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 Meds Home Medications and Allergies Home Medications Medication Instructions Recorded Confirmed Type warfarin 15 mg PO DAILY 02/16/16 06/09/20 History sertraline 150 mg PO DAILY 04/02/16 06/09/20 History albuterol sulfate [ProAir HFA] 2 puff INHALATION Q4H PRN PRN #1 01/03/18 06/09/20 Rx inh Narcan 4 mg NS DIRECTED #2 spray 01/13/18 06/09/20 Rx buprenorphine-naloxone [Suboxone] 16 film SUBLINGUAL DAILY AM 12/01/18 06/09/20 History atorvastatin 10 mg PO DAILY 05/30/20 06/09/20 History fluticasone propionate [Flonase] 1 spray INTRANASAL DAILY 05/30/20 06/09/20 History metoprolol succinate 50 mg PO DAILY 05/30/20 06/09/20 History gabapentin 1,200 mg PO TID 06/09/20 06/09/20 History Allergies Allergy/AdvReac Type Severity Reaction Status Date / Time Penicillins Allergy Unknown tolerating Unverified 06/09/20 13:03 Oxacillin this admission 06/24/16 per latex Allergy Unverified 06/09/20 13:03 Exam Narrative Exam Narrative: General: Anxious, tremulous male, pleasant, cooperative Neurological: A&Ox3, tremulous, no focal deficits Psychiatric: Anxious Skin: Flushed, diaphoretic, multiple ecchymoses, including under R eye and on his RUE. HEENT: Atraumatic, normocephalic, EOMI, dry MM, clear oropharynx, no submandibular or cervical lymphadenopathy, no goiter or JVD Cardiovascular: RRR, HR in the 80's when I was in the room, murmur of a mechanical mitral valve Lungs: rhonchi on expiration B as well as soft rales Gastrointestinal: soft, nontender, nondistended Genitourinary: deferred Extremities: trace edema BLE's, no c/c. Results Imaging Additional studies: CXR: No acute pulmonary findings EKG: poor quality EKG, HR 81, nSR, nonspecific ST-T changes diffusely Labs Result diagrams: 06/09/20 10:25 06/09/20 10:25 Labs: Laboratory Results - last 24 hr 06/09/20 06/09/20 06/09/20 10:25 10:25 10:25 WBC 11.41 H RBC 3.99 L Hgb 12.8 L Hct 38.5 L MCV 96.5 H MCH 32.1 MCHC 33.2 RDW 17.7 H Plt Count 381 D MPV 10.3 Immature Gran % 1.7 Neutrophils % 61.8 Lymphocytes % 12.4 Monocytes % 22.8 Eosinophils % 0.1 Basophils % 1.2 Nucleated RBC % 12 Absolute Neutrophils 7.05 H Absolute Lymphocytes 1.41 Absolute Monocytes 2.60 H Absolute Eosinophils 0.01 Absolute Basophils 0.14 RBC Morphology See below Polychromasia Present Poikilocytosis 2+ Anisocytosis 2+ Macrocytosis 1+ PT INR Sodium 138 Potassium 3.7 Chloride 100 Carbon Dioxide 29.7 Anion Gap 8.3 BUN 6 L Creatinine 1.08 Estimated GFR/1.73 m2 >= 60.00 Glucose 109 H Calcium 9.0 Magnesium 1.0 L Total Bilirubin 0.5 AST 102 H ALT 80 H Alkaline Phosphatase 145 H Total Protein 7.9 Albumin 3.9 Lipase 831 H TSH Urine Color Urine Clarity Urine pH Ur Specific [place] Urine Protein Urine Ketones Urine Blood Urine Nitrite Urine Bilirubin Urine Urobilinogen Ur Leukocyte Esterase Urine RBC Urine WBC Ur Epithelial Cells Urine Crystals Urine Bacteria Urine Casts Urine Mucus Ur Culture Indicated? Urine Glucose Salicylates 4.1 Urine Opiates Screen Urine Methadone Screen Acetaminophen < 2 Ur Barbiturates Screen Ur Tricyclics Screen Ur Amphetamines Screen U Benzodiazepines Scrn Urine Cocaine Screen Ur THC Screen Ethyl Alcohol 4.8 06/09/20 06/09/20 06/09/20 10:25 10:55 10:55 WBC RBC Hgb Hct MCV MCH MCHC RDW Plt Count MPV Immature Gran % Neutrophils % Lymphocytes % Monocytes % Eosinophils % Basophils % Nucleated RBC % Absolute Neutrophils Absolute Lymphocytes Absolute Monocytes Absolute Eosinophils Absolute Basophils RBC Morphology Polychromasia Poikilocytosis Anisocytosis Macrocytosis PT 11.6 H D INR 1.2 H Sodium Potassium Chloride Carbon Dioxide Anion Gap BUN Creatinine Estimated GFR/1.73 m2 Glucose Calcium Magnesium Total Bilirubin AST ALT Alkaline Phosphatase Total Protein Albumin Lipase TSH Urine Color Veronica Urine Clarity Clear Urine pH 8.5 H Ur Specific [place] 1.020 Urine Protein 100 H Urine Ketones Negative Urine Blood Trace-intact H Urine Nitrite Negative Urine Bilirubin Small H Urine Urobilinogen 1.0 H Ur Leukocyte Esterase Negative Urine RBC 3-5 H Urine WBC 0-2 Ur Epithelial Cells Rare Urine Crystals Urine Bacteria Rare Urine Casts Negative Urine Mucus Moderate Ur Culture Indicated? No Urine Glucose Negative Salicylates Urine Opiates Screen Negative Urine Methadone Screen Negative Acetaminophen Ur Barbiturates Screen Positive A Ur Tricyclics Screen Negative Ur Amphetamines Screen Negative U Benzodiazepines Scrn Positive A Urine Cocaine Screen Negative Ur THC Screen Positive A Ethyl Alcohol 06/09/20 13:36 WBC RBC Hgb Hct MCV MCH MCHC RDW Plt Count MPV Immature Gran % Neutrophils % Lymphocytes % Monocytes % Eosinophils % Basophils % Nucleated RBC % Absolute Neutrophils Absolute Lymphocytes Absolute Monocytes Absolute Eosinophils Absolute Basophils RBC Morphology Polychromasia Poikilocytosis Anisocytosis Macrocytosis PT INR Sodium Potassium Chloride Carbon Dioxide Anion Gap BUN Creatinine Estimated GFR/1.73 m2 Glucose Calcium Magnesium 1.3 L Total Bilirubin AST ALT Alkaline Phosphatase Total Protein Albumin Lipase 758 H TSH 2.27 Urine Color Urine Clarity Urine pH Ur Specific [place] Urine Protein Urine Ketones Urine Blood Urine Nitrite Urine Bilirubin Urine Urobilinogen Ur Leukocyte Esterase Urine RBC Urine WBC Ur Epithelial Cells Urine Crystals Urine Bacteria Urine Casts Urine Mucus Ur Culture Indicated? Urine Glucose Salicylates Urine Opiates Screen Urine Methadone Screen Acetaminophen Ur Barbiturates Screen Ur Tricyclics Screen Ur Amphetamines Screen U Benzodiazepines Scrn Urine Cocaine Screen Ur THC Screen Ethyl Alcohol Last Vital Signs Temp 37.0 C 06/09/20 16:38 Pulse 81 06/09/20 16:38 Resp 10 L 06/09/20 16:33 BP 159/104 H 06/09/20 16:33 Pulse Ox 96 06/09/20 16:33 COVID-19 Screening Have you, or household traveled for leisure in last 14 days?: No Had IN PERSON contact w/suspected or confirmed C-19 person: No
[2020-06-09] MEDS: Nicotine 21 MG/24 HR PATCH TD (18:28)
[2020-06-09 19:39] LABS: NT-proBNP 337 pg/mL (<300)
[2020-06-09] MEDS: Warfarin 5 MG TAB 10 MG PO (20:29)
[2020-06-09] MEDS: Gabapentin 600 MG TAB PO (20:29)
[2020-06-09] MEDS: Normal Saline 1,000 ML 75 ML IV (22:20)
[2020-06-10] VITALS (75 sets, daily range): BP systolic 123–191; BP diastolic 74–120; PULSE 68–112; RESP 11–23; TEMP 36.2–36.6; O2SAT 89–98
[2020-06-10] MEDS: PHENobarbital 130 MG/ML VIAL IVP ×5 (02:11→19:54)
[2020-06-10] MEDS: Acetaminophen 325 MG TAB PO ×2 (02:28→08:06)
[2020-06-10 07:07] LABS: Abs Immature Grans 0.08 10^3/uL (0.0-0.06); Absolute Basophil Count 0.09 10^3/uL (0.0-0.2); Absolute Eosinophil Count 0.16 10^3/uL (0.0-0.7); Absolute Lymphocyte Count 1.65 10^3/uL (1.2-3.4); Absolute Monocyte Count 1.24 10^3/uL (0.1-0.8); Eosinophils % 1.8; HCT 37.5 % (40.0-50.0); HGB 12.5 g/dL (13.5-17.5); Immature Grans % 0.9; Lymphocytes % 18.3; MCH 32.5 pg (27.0-33.0); MCHC 33.3 % (32.0-36.0); MCV 97.4 fL (80-95); MPV 10.8 fL (8.0-11.0); Monocytes % 13.7; Neutrophils % 64.3; Nucleated RBC 7 %; Platelet Count 336 10^3/uL (130-400); RBC 3.85 10^6/uL (4.36-5.78); RDW 17.9 % (11.8-14.1); RDW-SD 63.7 fL; WBC 9.02 10^3/uL (4.4-10.8)
[2020-06-10 07:15] LABS: Anion Gap 4.8 mmol/L (3-11); BUN 6 mg/dL (7-18); CO2 29.2 mmol/L (21.0-32.0); CREATININE 0.95 mg/dL (0.70-1.30); Chloride 103 mmol/L (98-107); Glucose 102 mg/dL (74-106); Magnesium 1.6 mg/dL (1.8-2.4); Potassium 3.3 mmol/L (3.5-5.1); Sodium 137 mmol/L (136-145)
[2020-06-10 07:24] LABS: Prothrombin Time 10.5 sec (9.3-11.0)
[2020-06-10] MEDS: Nicotine 21 MG/24 HR PATCH TD (07:37)
[2020-06-10] MEDS: Sertraline 50 MG TAB 150 MG PO (07:37)
[2020-06-10] MEDS: Multivitamin TAB 1 TAB PO (07:39)
[2020-06-10] MEDS: Buprenorphine/Naloxone 8 mg/2 mg FILM 1 EACH SL (07:39)
[2020-06-10] MEDS: Atorvastatin 10 MG TAB PO (07:39)
[2020-06-10] MEDS: Folic Acid 1 MG TAB PO (07:39)
[2020-06-10] MEDS: Gabapentin 600 MG TAB PO ×3 (07:39→19:49)
[2020-06-10] MEDS: Metoprolol CR 50 MG TABCR PO (07:39)
[2020-06-10] MEDS: Thiamine 100 MG TAB PO (07:40)
[2020-06-10] MEDS: Fluticasone NASAL SPRAY 16 GM BTL NS (07:40)
[2020-06-10 07:54] LABS: Folate 17.9 ng/mL (8.6-20.0); Vitamin B12 472 pg/mL (193-986)
[2020-06-10] MEDS: Normal Saline Flush 10 ML SYR IVP ×2 (08:08→11:26)
[2020-06-10 08:14] LABS: COVID-19 RT-PCR UVMMC Result Negative (Negative)
--- NOTE | 2020-06-10 08:27 | PGE_ITS ---
Date of Service Date of service: 06/10/20 Time of Service: 11:32 Assessment and Plan Assessment and plan (1) Alcohol withdrawal: Status: Acute Assessment and plan: Continues to require IV phenobarbital. No evidence of respiratory depression. Keep in ICU. We will finish his banana bag at a slow rate due to presence of rales on his physical exam, and will continue on PO vitamins. Does have evidence of B12 deficiency - replete. Care management to help the patient with his disposition upon medical clearance. Qualifiers: Complication of substance-induced condition: uncomplicated Qualified Code(s): F10.230 - Alcohol dependence with withdrawal, uncomplicated (2) Subtherapeutic international normalized ratio (INR): Status: Acute Assessment and plan: For a mechanical mitral valve. Target INR, per patient, is 3.5. Today, INR is 1.0 Increase warfarin to 15 mg. Continue bridging with SC lovenox until INR is therapeutic. (3) Asthma: Status: Chronic Assessment and plan: provide prn albuterol. Apparently, he hasn't gotten it yet, so we will trial this now. If remains rhonchorous, consider a prednisone burst (4) Opioid dependence: Status: Chronic Assessment and plan: On suboxone therapy via [facility]. I only feel comfortable with him getting what he last got at [facility] which was 8 mg SL film, especially given that he is on phenobarbital. (5) Discharge planning issues: Status: Acute Assessment and plan: Full code. Homeless. Care management working on disposition once medically cleared. Total Critical Care Time 40 minutes. Subjective Subjective Interval history since last seen: Reports anxiety and diarrhea. Diarrhea is brown. He states that he does not normally have diarrhea when he is detoxing, but agrees it could be because he got half his normal dose of suboxone today. He understands why we did that, or so he verbalizes. Denies dizziness, chest pain, shortness of breath. Reports a chronic dry smoker's cough. Endorses nausea, no vomting. Denies abdominal pain. COVID neg. CIWA -6, 5, 5, 15, 3, 1, 17, got phenobarbital this morning and about to get it again. Received a total of 1040 mg over 24 hrs given. Exam Narrative Exam Narrative: General: Very anxious male, A&ox3, mildly tremulous, restless HEENT: EOMI, MMM Cardiovascular: RRR, murmur of a mechanical mitral valve Lungs: expiratory wheezing B, not cleared by cough Gastrointestinal: soft, nontender, nondistended Extremities: no e/c/c BLE's Objective Last Vital Signs Temp 36.2 C L 06/10/20 07:50 Pulse 79 06/10/20 07:01 Resp 16 06/10/20 07:01 BP 137/81 06/10/20 07:01 Pulse Ox 95 06/10/20 07:50 Laboratory Results - last 24 hr 06/09/20 06/09/20 06/09/20 10:25 10:25 10:25 WBC 11.41 H RBC 3.99 L Hgb 12.8 L Hct 38.5 L MCV 96.5 H MCH 32.1 MCHC 33.2 RDW 17.7 H Plt Count 381 D MPV 10.3 Immature Gran % 1.7 Neutrophils % 61.8 Lymphocytes % 12.4 Monocytes % 22.8 Eosinophils % 0.1 Basophils % 1.2 Nucleated RBC % 12 Absolute Neutrophils 7.05 H Absolute Lymphocytes 1.41 Absolute Monocytes 2.60 H Absolute Eosinophils 0.01 Absolute Basophils 0.14 RBC Morphology See below Polychromasia Present Poikilocytosis 2+ Anisocytosis 2+ Macrocytosis 1+ PT INR Sodium 138 Potassium 3.7 Chloride 100 Carbon Dioxide 29.7 Anion Gap 8.3 BUN 6 L Creatinine 1.08 Estimated GFR/1.73 m2 >= 60.00 Glucose 109 H Calcium 9.0 Magnesium 1.0 L Total Bilirubin 0.5 AST 102 H ALT 80 H Alkaline Phosphatase 145 H NT-Pro-B Natriuret Pep Total Protein 7.9 Albumin 3.9 Lipase 831 H Vitamin B12 Folate TSH Urine Color Urine Clarity Urine pH Ur Specific [place] Urine Protein Urine Ketones Urine Blood Urine Nitrite Urine Bilirubin Urine Urobilinogen Ur Leukocyte Esterase Urine RBC Urine WBC Ur Epithelial Cells Urine Crystals Urine Bacteria Urine Casts Urine Mucus Ur Culture Indicated? Urine Glucose Salicylates 4.1 Urine Opiates Screen Urine Methadone Screen Acetaminophen < 2 Ur Barbiturates Screen Ur Tricyclics Screen Ur Amphetamines Screen U Benzodiazepines Scrn Urine Cocaine Screen Ur THC Screen Ethyl Alcohol 4.8 COVID-19 PCR Nasopharyn COVID-19 PCR Ref Test Perform Site 06/09/20 06/09/20 06/09/20 10:25 10:55 10:55 WBC RBC Hgb Hct MCV MCH MCHC RDW Plt Count MPV Immature Gran % Neutrophils % Lymphocytes % Monocytes % Eosinophils % Basophils % Nucleated RBC % Absolute Neutrophils Absolute Lymphocytes Absolute Monocytes Absolute Eosinophils Absolute Basophils RBC Morphology Polychromasia Poikilocytosis Anisocytosis Macrocytosis PT 11.6 H D INR 1.2 H Sodium Potassium Chloride Carbon Dioxide Anion Gap BUN Creatinine Estimated GFR/1.73 m2 Glucose Calcium Magnesium Total Bilirubin AST ALT Alkaline Phosphatase NT-Pro-B Natriuret Pep Total Protein Albumin Lipase Vitamin B12 Folate TSH Urine Color Veronica Urine Clarity Clear Urine pH 8.5 H Ur Specific [place] 1.020 Urine Protein 100 H Urine Ketones Negative Urine Blood Trace-intact H Urine Nitrite Negative Urine Bilirubin Small H Urine Urobilinogen 1.0 H Ur Leukocyte Esterase Negative Urine RBC 3-5 H Urine WBC 0-2 Ur Epithelial Cells Rare Urine Crystals Urine Bacteria Rare Urine Casts Negative Urine Mucus Moderate Ur Culture Indicated? No Urine Glucose Negative Salicylates Urine Opiates Screen Urine Methadone Screen Acetaminophen Ur Barbiturates Screen Ur Tricyclics Screen Ur Amphetamines Screen U Benzodiazepines Scrn Urine Cocaine Screen Ur THC Screen Ethyl Alcohol COVID-19 PCR Negative Nasopharyn COVID-19 PCR Not Applicable Ref Test Perform Site [facility] 06/09/20 06/09/20 06/09/20 10:55 13:36 13:36 WBC RBC Hgb Hct MCV MCH MCHC RDW Plt Count MPV Immature Gran % Neutrophils % Lymphocytes % Monocytes % Eosinophils % Basophils % Nucleated RBC % Absolute Neutrophils Absolute Lymphocytes Absolute Monocytes Absolute Eosinophils Absolute Basophils RBC Morphology Polychromasia Poikilocytosis Anisocytosis Macrocytosis PT INR Sodium Potassium Chloride Carbon Dioxide Anion Gap BUN Creatinine Estimated GFR/1.73 m2 Glucose Calcium Magnesium 1.3 L Total Bilirubin AST ALT Alkaline Phosphatase NT-Pro-B Natriuret Pep 337 H Total Protein Albumin Lipase 758 H Vitamin B12 Folate TSH 2.27 Urine Color Urine Clarity Urine pH Ur Specific [place] Urine Protein Urine Ketones Urine Blood Urine Nitrite Urine Bilirubin Urine Urobilinogen Ur Leukocyte Esterase Urine RBC Urine WBC Ur Epithelial Cells Urine Crystals Urine Bacteria Urine Casts Urine Mucus Ur Culture Indicated? Urine Glucose Salicylates Urine Opiates Screen Negative Urine Methadone Screen Negative Acetaminophen Ur Barbiturates Screen Positive A Ur Tricyclics Screen Negative Ur Amphetamines Screen Negative U Benzodiazepines Scrn Positive A Urine Cocaine Screen Negative Ur THC Screen Positive A Ethyl Alcohol COVID-19 PCR Nasopharyn COVID-19 PCR Ref Test Perform Site 06/10/20 06/10/20 06/10/20 06:30 06:30 06:30 WBC 9.02 RBC 3.85 L Hgb 12.5 L Hct 37.5 L MCV 97.4 H MCH 32.5 MCHC 33.3 RDW 17.9 H Plt Count 336 MPV 10.8 Immature Gran % 0.9 Neutrophils % 64.3 Lymphocytes % 18.3 Monocytes % 13.7 Eosinophils % 1.8 Basophils % 1.0 Nucleated RBC % 7 Absolute Neutrophils 5.80 Absolute Lymphocytes 1.65 Absolute Monocytes 1.24 H Absolute Eosinophils 0.16 Absolute Basophils 0.09 RBC Morphology Polychromasia Poikilocytosis Anisocytosis Macrocytosis PT 10.5 INR 1.0 Sodium 137 Potassium 3.3 L Chloride 103 Carbon Dioxide 29.2 Anion Gap 4.8 BUN 6 L Creatinine 0.95 Estimated GFR/1.73 m2 >= 60.00 Glucose 102 Calcium 8.0 L Magnesium 1.6 L Total Bilirubin AST ALT Alkaline Phosphatase NT-Pro-B Natriuret Pep Total Protein Albumin Lipase Vitamin B12 Folate TSH Urine Color Urine Clarity Urine pH Ur Specific [place] Urine Protein Urine Ketones Urine Blood Urine Nitrite Urine Bilirubin Urine Urobilinogen Ur Leukocyte Esterase Urine RBC Urine WBC Ur Epithelial Cells Urine Crystals Urine Bacteria Urine Casts Urine Mucus Ur Culture Indicated? Urine Glucose Salicylates Urine Opiates Screen Urine Methadone Screen Acetaminophen Ur Barbiturates Screen Ur Tricyclics Screen Ur Amphetamines Screen U Benzodiazepines Scrn Urine Cocaine Screen Ur THC Screen Ethyl Alcohol COVID-19 PCR Nasopharyn COVID-19 PCR Ref Test Perform Site 06/10/20 06:30 WBC RBC Hgb Hct MCV MCH MCHC RDW Plt Count MPV Immature Gran % Neutrophils % Lymphocytes % Monocytes % Eosinophils % Basophils % Nucleated RBC % Absolute Neutrophils Absolute Lymphocytes Absolute Monocytes Absolute Eosinophils Absolute Basophils RBC Morphology Polychromasia Poikilocytosis Anisocytosis Macrocytosis PT INR Sodium Potassium Chloride Carbon Dioxide Anion Gap BUN Creatinine Estimated GFR/1.73 m2 Glucose Calcium Magnesium Total Bilirubin AST ALT Alkaline Phosphatase NT-Pro-B Natriuret Pep Total Protein Albumin Lipase Vitamin B12 472 Folate 17.9 TSH Urine Color Urine Clarity Urine pH Ur Specific [place] Urine Protein Urine Ketones Urine Blood Urine Nitrite Urine Bilirubin Urine Urobilinogen Ur Leukocyte Esterase Urine RBC Urine WBC Ur Epithelial Cells Urine Crystals Urine Bacteria Urine Casts Urine Mucus Ur Culture Indicated? Urine Glucose Salicylates Urine Opiates Screen Urine Methadone Screen Acetaminophen Ur Barbiturates Screen Ur Tricyclics Screen Ur Amphetamines Screen U Benzodiazepines Scrn Urine Cocaine Screen Ur THC Screen Ethyl Alcohol COVID-19 PCR Nasopharyn COVID-19 PCR Ref Test Perform Site
[2020-06-10] MEDS: MAGNESIUM SULFATE 4 GM/100 ML BAG IVPB (09:05)
[2020-06-10] MEDS: Enoxaparin 100 MG/ML SYR 90 MG SC ×2 (11:12)
[2020-06-10] MEDS: Albuterol HFA 8 GM 60 PUFF INH IH (11:39)
--- NOTE | 2020-06-10 11:52 | NUR.NOTE ---
Nursing Note: 06/10/2020 Vianey [facility]NA[facility] ICU Patients family member brought in clothes. 1 [employer] Jacket 1 Button up shirt 4 pair of socks 1 pair of sandals 5 underwear 3 black T-shirts 1 pair of sweat pants 1 zip up hoodie 1 toothbrush and toothpaste
--- NOTE | 2020-06-10 13:24 | INITIAL_ITS ---
- If Service Date Differs Date of service: 06/10/20 Time of Service: 13:24 Care Management Initial Assess REASON FOR HOSPITALIZATION:: ETOH withdrawal PAST MEDICAL HISTORY/PAST SURGICAL HISTORY:: Medical History. Alcohol abuse. Asthma. Bipolar affective disorder. Brain abscess. CVA (cerebral vascular accident). DIC (disseminated intravascular coagulation). Endocarditis due to Staphylococcus. History of intravenous drug abuse. HTN (hypertension). Opioid dependence. PTSD (post-traumatic stress disorder). Septic arterial embolism. Surgical History. H/O mitral valve replacement with mechanical valve. 2004 at [facility] [place]. Target INR 2.5-3.5. History of appendectomy. History of partial pancreatectomy. History of splenectomy. Tympanic membrane disorder. TM removal PREVIOUS FUNCTIONAL STATUS/SOCIAL/FAMILY SUPPORTS:: Marlon has been staying in local hotels, but does not currently have a permanent residence. His father's address is listed, but per report, he is no longer living with him. He identifies his father and his as supportive. He is independent with his ADL's. CURRENT FUNCTIONAL STATUS:: Marlon was sitting up in bed when CM met with him. He reported that is feeling very anxious, but feels that he is being well taken care of. He reported that he is interested in going to [facility], as he has had success there in the past. CM sent updated information to [facility], who called and declined him for today due to his acute medical needs. They stated that they would consider him for tomorrow. CM will send updated labs in the morning. CM will continue to follow. ADVANCE DIRECTIVES:: None on file. CM will offer [place] AD forms. Has patient been provided with info about the portal/API?: Yes Did the patient sign up for the portal?: No CODE STATUS:: Full Code INSURANCE COVERAGE / FINANCIAL ISSUES:: [employer] CURRENT HOME/COMMUNITY SERVICES/EQUIPMENT:: No current services or equipment. PRIMARY CARE PHYSICIAN:: Radha Tracey POTENTIAL DISCHARGE NEEDS:: Evaluations for further needs, follow up appointments PATIENT/FAMILY EDUCATION NEEDS:: Review discharge instructions regarding activity levels and medications, discussion of self care needs including ask me three. ANTICIPATED BARRIERS TO DISCHARGE:: None identified at this time. TRANSPORTATION:: Via private vehicle by family vs RCT PLAN:: Marlon is hoping to go to [facility] to detox from alcohol. CM is assisting with this, and will send updated labs tomorrow. CM will contact the pipe recovery specialist to help assist with Marlon remaining alcohol free in the community. He will transport via private vehicle by family vs RCT. He will follow up with his PCP and discharge plan of care. CM will continue to follow.
--- NOTE | 2020-06-10 13:30 | PHA.REVIEW ---
Pharmacy Admission Review - Admission Clinical Review (Last Updated 06/09/20 @ 18:29 by Kaila Baptiste MD) Discharge planning issues (Acute) Subtherapeutic international normalized ratio (INR) (Acute) Alcohol withdrawal (Acute) Penicillins Allergy (Unknown, Unverified 06/09/20 13:03) tolerating Oxacillin this admission 06/24/16 per latex Allergy (Unverified 06/09/20 13:03) Height 5 ft 8 in Weight 96.4 kg - Renal Dosing Renal Dosing: BUN 6 mg/dL (7-18) L 06/10/20 06:30 Creatinine 0.95 mg/dL (0.70-1.30) 06/10/20 06:30 Medications needing adjustments: Reviewed - Anticoagulation Anticoagulation: Hgb 12.5 g/dL (13.5-17.5) L 06/10/20 06:30 Hct 37.5 % (40.0-50.0) L 06/10/20 06:30 Plt Count 336 10^3/uL (130-400) 06/10/20 06:30 INR 1.0 (0.9-1.1) 06/10/20 06:30 Creatinine 0.95 mg/dL (0.70-1.30) 06/10/20 06:30 Therapeutic Anticoagulation: Reviewed Medications: Enoxaparin (bridging until INR is therapeutic) - Opiate Usage Evaluate Pain Scale/Pains Meds: N/A (suboxone 8mg daily) - Relevant Labs Sodium 137 mmol/L (136-145) 06/10/20 06:30 Potassium 3.3 mmol/L (3.5-5.1) L 06/10/20 06:30 Chloride 103 mmol/L (98-107) 06/10/20 06:30 Magnesium 1.6 mg/dL (1.8-2.4) L 06/10/20 06:30 Electrolytes, C-Reactive P, ESR: Reviewed (40meq PO K+ given, 4g IV mag infused) - DM Control DM Control: Glucose 102 mg/dL (74-106) 06/10/20 06:30 - Heart Failure/OK Heart Failure/OK: NT-Pro-B Natriuret Pep 337 pg/mL (<300) H 06/09/20 13:36 EF%, PAO's, B-Blockers, Diuretics: Reviewed - BP Control BP Control: Blood Pressure [Left Arm] 136/83 Blood Pressure 137/81 Blood Pressure 139/74 Blood Pressure 136/83 Blood Pressure 161/93 Blood Pressure 167/102 Blood Pressure 145/85 Blood Pressure 153/104 Blood Pressure 153/99 Blood Pressure 158/96 Blood Pressure 164/90 Blood Pressure 170/105 Blood Pressure 191/119 Blood Pressure 145/109 Blood Pressure 155/81 Blood Pressure 140/80 If elevated: Reviewed List meds needing interventions: metoprolol er 50 daily - Qtc Review If Elevated: Reviewed (QTc 456) - IV to PO Switch IV Medications: Reviewed - Home Meds Home Med List reviewed: Reviewed Relevent Home Meds Not ordered & why?: all ordered - Current meds Current Medication Order Review: Reviewed - Comments Comments/Follow Ups: So far has received 1300mg of phenobarb (usual effective dose is 1040mg in 24 hours up to a 20-30mg/kg). Soft limit = 20mg/kg (1928mg). Hard limit = 30mg/kg (2892mg). Symptoms beyond 30mg/kg likely not due to etoh withdrawal, consider using haldol at this point
[2020-06-10] MEDS: Potassium Chloride 20 MEQ TABCR 40 MEQ PO (13:53)
[2020-06-10] MEDS: Cyanocobalamin 1000 MCG/ML VIAL IM/SC (13:53)
[2020-06-10] MEDS: Normal Saline 1,000 ML 75 ML IV (15:53)
[2020-06-10] MEDS: Warfarin 5 MG TAB 15 MG PO (19:49)
[2020-06-11] VITALS (38 sets, daily range): BP systolic 112–168; BP diastolic 63–110; PULSE 63–98; RESP 10–33; TEMP 36.2–36.6; O2SAT 90–97
[2020-06-11] MEDS: Enoxaparin 100 MG/ML SYR 90 MG SC ×2 (00:15→13:29)
[2020-06-11] MEDS: PHENobarbital 130 MG/ML VIAL IVP ×2 (03:47→08:17)
[2020-06-11] MEDS: Normal Saline 1,000 ML 75 ML IV ×2 (04:45→17:58)
[2020-06-11 06:55] LABS: INR 1.1 (0.9-1.1); Prothrombin Time 10.7 sec (9.3-11.0)
[2020-06-11 07:01] LABS: ALT 116 U/L (16-63); AST 140 U/L (15-37); Albumin 3.1 g/dL (3.4-5.0); Alkaline Phosphatase 147 U/L (46-116); Anion Gap 4.9 mmol/L (3-11); BUN 8 mg/dL (7-18); Bilirubin, Direct 0.08 mg/dL (0.00-0.20); Bilirubin, Total 0.4 mg/dL (0.2-1.0); CO2 28.1 mmol/L (21.0-32.0); CREATININE 0.84 mg/dL (0.70-1.30); Chloride 103 mmol/L (98-107); Glucose 89 mg/dL (74-106); Lipase 896 U/L (73-393); Magnesium 1.8 mg/dL (1.8-2.4); Sodium 136 mmol/L (136-145); Total Protein 6.9 g/dL (6.4-8.2)
[2020-06-11 07:05] LABS: Potassium 4.3 mmol/L (3.5-5.1)
[2020-06-11] MEDS: Buprenorphine/Naloxone 8 mg/2 mg FILM 1 EACH SL (07:50)
[2020-06-11] MEDS: Nicotine 21 MG/24 HR PATCH TD (07:50)
[2020-06-11] MEDS: Folic Acid 1 MG TAB PO (07:51)
[2020-06-11] MEDS: Multivitamin TAB 1 TAB PO (07:51)
[2020-06-11] MEDS: Gabapentin 600 MG TAB PO ×3 (07:51→20:12)
[2020-06-11] MEDS: Metoprolol CR 50 MG TABCR PO (07:51)
[2020-06-11] MEDS: Sertraline 50 MG TAB 150 MG PO (07:51)
[2020-06-11] MEDS: Thiamine 100 MG TAB PO (07:51)
[2020-06-11] MEDS: Cyanocobalamin 500 MCG TAB PO (07:51)
[2020-06-11] MEDS: Atorvastatin 10 MG TAB PO (07:51)
[2020-06-11] MEDS: Fluticasone NASAL SPRAY 16 GM BTL NS (07:52)
--- NOTE | 2020-06-11 09:12 | PDOC.CMPRO ---
- If Service Date Differs Date of service: 06/11/20 Time of Service: 09:12 Care Management Progress Note S/O: Marlon was sitting on the side of the bed when CM met with him. He stated that he is feeling a little bit better. When asked what his plans were for post-discharged, he shared that originally he wanted to go to [facility] but since he has already been here for a few days, feels he has detoxed here. He did share that the doctor agreed to prescribe Antabuse at discharge which has helped him in the past. He said he was able to stay sober for 2 years on Antabuse. CM called the [employer]ilet [employer] Laundry [employer] Supervisor for additional support. She was contacted yesterday by a different CM but has been unable to talk with him because he has been heavily medicated. A: Marlon is a 40 year old man admitted to [facility] on 06/09/20 with alcohol withdrawal P:Marlon was hoping to go to [facility] to detox from alcohol, however is no longer sure that he wants to. CM contacted the manager disaster recovery to help assist with Marlon remaining alcohol free in the community. He will transport via private vehicle by family vs [facility]. He will follow up with his PCP and discharge plan of care. CM will continue to follow. cc:
[2020-06-11] MEDS: Sertraline 50 MG TAB PO (10:09)
--- NOTE | 2020-06-11 12:02 | W.PM.PROGNOT ---
Date of Service Date of service: 06/11/20 Time of Service: 12:02 Assessment and Plan Assessment and plan (1) Alcohol withdrawal: Status: Acute Assessment and plan: Continues to require intermittent phenobarbital parenterally and therefore will require continued monitoring in the ICU. However overall his alcohol withdrawal does seem to be improving. Continue vitamin supplementation B12 folic acid thiamine and multivitamin. Qualifiers: Complication of substance-induced condition: uncomplicated Qualified Code(s): F10.230 - Alcohol dependence with withdrawal, uncomplicated (2) Subtherapeutic international normalized ratio (INR): Status: Acute Assessment and plan: For a mechanical mitral valve. Target INR, per patient, is 3.5. Today, INR is 1.1 Increase warfarin to 15 mg. Continue bridging with SC lovenox until INR is therapeutic. (3) Asthma: Status: Chronic Assessment and plan: We will place the patient on scheduled doses of albuterol 2 puffs 4 times daily. Other than scattered wheezes on auscultation of his chest he is asymptomatic. He denies any shortness of breath cough or sputum production (4) Alcoholic pancreatitis: Status: Acute Assessment and plan: Lipase remains elevated at 896. Is unclear whether this is acute or chronic nevertheless he remains pain-free and tolerating a diet. He appears to have had no imaging of his pancreas. In spite of his improvement in his lipase is been in the 800s throughout this hospitalization. I will get an ultrasound of his pancreas and liver on Saturday morning particularly in light of his elevated transaminases and alkaline phosphatase (5) Opioid dependence: Status: Chronic Assessment and plan: On suboxone therapy via [facility]. I only feel comfortable with him getting what he last got at [facility] which was 8 mg SL film, especially given that he is on phenobarbital. (6) Discharge planning issues: Status: Acute Assessment and plan: Full code. Homeless. Care management working on disposition once medically cleared. Subjective Subjective Interval history since last seen: Overall the patient feels better. He is concerned about getting anxious just being in the hospital. This morning he was getting little more agitated but responded well to the phenobarbital. Although I am reluctant to mix benzodiazepines with the phenobarbital small doses of Valium seem to help him calm down with his agitation and anxiety. I have ordered some p.o. Valium 5 mg 4 times daily as needed anxiety in addition to the phenobarbital which is being given on a as needed basis to maintain a RASS scale of 0 to -1. I have also increased his sertraline from 150 mg daily to 200 mg daily to help with his anxiety. Present time he seems to be willing to stay in the hospital through the weekend. He did express a desire to go to [place] however he feels that if he stays until Saturday he will be through the acute alcohol withdrawal and will not need inpatient treatment at [facility]. He is willing to follow-up through [facility] behavioral clinic. He meets with his counselor weekly but admits he has not been honest about his alcohol consumption. He has also expressed an interest in going on a prophylactic medication to inhibit his use of alcohol such as acamprosate or disulfiram. Patient seems to be tolerating his diet denies any nausea or vomiting or pain Exam Narrative Exam Narrative: Obese middle-aged male sitting up in his bed watching TV alert and oriented person place time circumstance. Skin is nondiaphoretic he has no tremors. Lungs scattered expiratory wheezes Heart regular rate and rhythm Abdomen soft and nontender. Objective Last Vital Signs Temp 36.5 C 06/11/20 09:28 Pulse 98 H 06/11/20 09:28 Resp 17 06/11/20 09:28 BP 135/73 06/11/20 07:01 Pulse Ox 95 06/11/20 09:28 Laboratory Results - last 24 hr 06/11/20 06/11/20 06:05 06:05 PT 10.7 INR 1.1 Sodium 136 Potassium 4.3 D Chloride 103 Carbon Dioxide 28.1 Anion Gap 4.9 BUN 8 Creatinine 0.84 Estimated GFR/1.73 m2 >= 60.00 Glucose 89 Calcium 8.0 L Magnesium 1.8 Total Bilirubin 0.4 Conjugated Bilirubin 0.08 AST 140 H ALT 116 H Alkaline Phosphatase 147 H Total Protein 6.9 Albumin 3.1 L Lipase 896 H
[2020-06-11] MEDS: diazePAM 5 MG TAB PO ×2 (15:32→20:12)
[2020-06-11] MEDS: Albuterol HFA 8 GM 60 PUFF INH IH (16:21)
[2020-06-11] MEDS: Warfarin 5 MG TAB 15 MG PO (20:11)
[2020-06-12] VITALS (65 sets, daily range): BP systolic 112–152; BP diastolic 46–123; PULSE 59–104; RESP 11–28; TEMP 35–36.8; O2SAT 91–97
[2020-06-12] MEDS: PHENobarbital 130 MG/ML VIAL IVP (00:16)
[2020-06-12] MEDS: Enoxaparin 100 MG/ML SYR 90 MG SC ×3 (00:16→22:57)
[2020-06-12] MEDS: Buprenorphine/Naloxone 8 mg/2 mg FILM 1 EACH SL (07:49)
[2020-06-12] MEDS: Nicotine 21 MG/24 HR PATCH TD ×2 (07:49→12:46)
[2020-06-12] MEDS: Sertraline 50 MG TAB 200 MG PO (07:50)
[2020-06-12] MEDS: Cyanocobalamin 500 MCG TAB PO (07:50)
[2020-06-12] MEDS: Multivitamin TAB 1 TAB PO (07:50)
[2020-06-12] MEDS: Metoprolol CR 50 MG TABCR PO (07:50)
[2020-06-12] MEDS: Atorvastatin 10 MG TAB PO (07:51)
[2020-06-12] MEDS: Thiamine 100 MG TAB PO (07:51)
[2020-06-12] MEDS: Gabapentin 600 MG TAB PO ×3 (07:51→20:01)
[2020-06-12] MEDS: Folic Acid 1 MG TAB PO (07:51)
[2020-06-12] MEDS: Albuterol HFA 8 GM 60 PUFF INH IH ×4 (08:30→20:05)
--- NOTE | 2020-06-12 09:19 | PDOC.CMPRO ---
- If Service Date Differs Date of service: 06/12/20 Time of Service: 09:19 Care Management Progress Note S/O: Marlon was sitting on the side of the bed when CM met with him. He has been moved out of the ICU and was dressed in regular clothes. Jose stated that he feels better physically but is very anxious. He definitely is no longer interested in going to [facility] as he feels that his detox is nearly complete. Once again he talked about the Antabuse and how much he is sure it will help him. Marlon is currently homeless. He admitted that he has been evicted from 2 of the local hotels because of his drinking and is not sure if the State of [place] will give him another chance. He shared that his has a room in a hotel but does not want him with her because she is afraid of losing her housing too if he starts drinking again. A: Marlon is a 40 year old man admitted to [facility] on 06/09/20 with alcohol withdrawal P:Marlon is no [id number] interested in going to [facility] to detox from alcohol. He will likely be discharged into the community and will seek a voucher for housing from [employer]. He has yet to connect with the acetone recovery worker but maintains he is very interested in doing so. He will transport via private vehicle by family vs [facility]. He will follow up with his PCP and discharge plan of care. CM will continue to follow and to support Marlon and his discharge planning concerns.
[2020-06-12] MEDS: diazePAM 5 MG TAB PO ×3 (09:50→19:51)
--- NOTE | 2020-06-12 09:58 | PGE_ITS ---
Date of Service Date of service: 06/12/20 Time of Service: 09:59 Assessment and Plan Assessment and plan (1) Alcohol withdrawal: Status: Acute Assessment and plan: Patient is improving remarkably. His CIWA score is 0. He can be transferred out to the medical/surgical floor while we continue to try to get his INR therapeutic with his warfarin. I have written for as needed oral phenobarbital but I do not feel that he is going to need it. He does have some chronic generalized anxiety disorder for which he is on sertraline and also I have written for prn Valium. Patient has expressed an interest in going on medications to prevent alcohol abuse such as disulfiram or acamprosate. I have reviewed his chronic medications and potential interactions with either disulfir am or acamprosate and it appears that acamprosate is the safest choice. Disulfiram can interact with medications that have an ethanol base. This includes sertraline as well as phenobarbital. I will start him on acamprosate while he is here in the hospital and write a prescription upon discharge. Qualifiers: Complication of substance-induced condition: uncomplicated Qualified Code(s): F10.230 - Alcohol dependence with withdrawal, uncomplicated (2) Subtherapeutic international normalized ratio (INR): Status: Acute Assessment and plan: Patient takes chronic warfarin for mechanical mitral valve. INR remains subtherapeutic at 1.2. Target INR is between 3.0 and 3.5. Continue bridging therapy with Lovenox while we await his response to warfarin. (3) Asthma: Status: Chronic Assessment and plan: Patient continues to have expiratory wheezes diffusely. I will put him on a short course of prednisone and continue with scheduled doses of albuterol. (4) Alcoholic pancreatitis: Status: Acute Assessment and plan: Lipase remains elevated at 896. Is unclear whether this is acute or chronic nevertheless he remains pain-free and tolerating a diet. He appears to have had no imaging of his pancreas. In spite of his improvement in his lipase is been in the 800s throughout this hospitalization. I will get an ultrasound of his pancreas and liver on Saturday morning particularly in light of his elevated transaminases and alkaline phosphatase (5) Opioid dependence: Status: Chronic Assessment and plan: On suboxone therapy via [facility]. I only feel comfortable with him getting what he last got at [facility] which was 8 mg SL film, especially given that he is on phenobarbital. (6) Discharge planning issues: Status: Acute Assessment and plan: Full code. Homeless. Care management working on disposition once medically cleared. Subjective Subjective Interval history since last seen: Overall patient is doing quite well. No tremors no diaphoresis no nausea or vomiting. Denies any pain. Nursing staff noted that the IV from the right forearm looked thrombosed and there was little bit of purulent drainage around it therefore the IV was discontinued. I examined at this morning there is a little redness and induration at the previous IV site suspicious for a cellulitis. I will put him on doxycycline 100 mg p.o. twice daily for 5 days until the cellulitis clears up. From an alcohol withdrawal standpoint is doing markedly better and is ready to be transferred out of the intensive care unit. His INR still low at 1.2 but he is back on his warfarin dose of 15 mg nightly. I discontinued all IV meds and telemetry and have ordered for him to be transferred to the medical/surgical floor. He could still take as needed phenobarbital orally as needed for alcohol withdrawal but I do not think he is really going to need it. He does have some chronic anxiety issues for which have increased his sertraline to 200 mg daily and he also has as needed Valium. Exam Narrative Exam Narrative: Obese male whose pleasant cooperative alert and oriented person place time circumstance. Lungs with scattered expiratory wheezes Heart regular rate and rhythm Abdomen soft and nontender nondistended normal bowel sounds. Right forearm over the volar surface has a small indurated erythematous area at the previous IV site. I cannot express any pus from the area. Neuro exam is grossly intact nonfocal no tremors no diaphoresis and no hallucinations Objective Last Vital Signs Temp 36.8 C 06/12/20 08:23 Pulse 68 06/12/20 08:00 Resp 12 06/12/20 08:35 BP 144/87 H 06/12/20 08:00 Pulse Ox 96 06/12/20 08:12 Laboratory Results - last 24 hr 06/12/20 06/12/20 06/12/20 06:20 06:20 06:20 PT Cancelled INR Cancelled Sodium Cancelled Potassium Cancelled Chloride Cancelled Carbon Dioxide Cancelled Anion Gap Cancelled BUN Cancelled Creatinine Cancelled Estimated GFR/1.73 m2 Cancelled Glucose Cancelled Calcium Cancelled Magnesium Cancelled Total Bilirubin Cancelled AST Cancelled ALT Cancelled Alkaline Phosphatase Cancelled Total Protein Cancelled Albumin Cancelled Lipase Cancelled
[2020-06-12 10:05] LABS: INR 1.2 (0.9-1.1); Prothrombin Time 12.2 sec (9.3-11.0)
[2020-06-12 10:16] LABS: ALT 117 U/L (16-63); AST 108 U/L (15-37); Albumin 3.3 g/dL (3.4-5.0); Alkaline Phosphatase 151 U/L (46-116); Anion Gap 6.1 mmol/L (3-11); BUN 5 mg/dL (7-18); Bilirubin, Total 0.3 mg/dL (0.2-1.0); CO2 25.9 mmol/L (21.0-32.0); CREATININE 0.89 mg/dL (0.70-1.30); Calcium 8.5 mg/dL (8.5-10.1); Chloride 101 mmol/L (98-107); Glucose 109 mg/dL (74-106); Lipase 989 U/L (73-393); Magnesium 1.6 mg/dL (1.8-2.4); Potassium 4.4 mmol/L (3.5-5.1); Sodium 133 mmol/L (136-145); Total Protein 7.5 g/dL (6.4-8.2)
[2020-06-12] MEDS: Doxycycline Hyclate 100 MG CAP PO ×2 (11:08→22:57)
[2020-06-12] MEDS: predniSONE 20 MG TAB 40 MG PO (11:08)
[2020-06-12] MEDS: Acetaminophen 325 MG TAB PO (12:46)
[2020-06-12] MEDS: Acamprosate 333 MG TABCR 666 MG PO ×2 (13:56→19:50)
[2020-06-12] MEDS: PHENobarbital 64.8 MG TAB 129.6 MG PO ×2 (13:56→22:57)
--- NOTE | 2020-06-12 16:27 | NUR.NOTE ---
Nursing Note: Pt transfered from ICU to Rm 212. VSS. A&Ox3. oriented to room.
[2020-06-12] MEDS: Warfarin 5 MG TAB 15 MG PO (19:51)
[2020-06-13 03:40] VITALS: BP 144/90; PULSE 62; RESP 18; TEMP 36.5; O2SAT 95
--- NOTE | 2020-06-13 07:00 | DI.US_ITS ---
EXAM: US ABDOMEN CLINICAL HISTORY: pancreatitis TECHNIQUE: Ultrasound abdomen performed using standard protocol. COMPARISON: US US ECHOCARDIOGRAM from 06/13/2020 FINDINGS: LIVER: The liver is enlarged at 20 cm. The echogenicity is increased and the echotexture is coarse. No focal liver lesions are seen. GALLBLADDER: No evidence of cholelithiasis. The gallbladder wall is mild mildly thickened at 3 millim eters. A small stone versus polyp is seen. Thickened. There is no abnormal gallbladder distention. No pericholecystic fluid identified. SOTO'S SIGN: Negative. BILIARY SYSTEM: No intrahepatic or extrahepatic biliary ductal dilation. Common bile duct measures 5 millimeters. KIDNEYS: Kidneys are symmetric in size. No evidence of renal calculi. No evidence of hydronephrosis. No renal mass identified. A 2.1 centimeter cyst is noted on the left kidney. PANCREAS: Not well seen due to bowel gas. SPLEEN: Not enlarged. ABDOMINAL AORTA AND IVC: Visualized portions normal caliber. ASCITES: None seen. IMPRESSION: Enlarged fatty liver. Borderline gallbladder wall thickening. 7 millimeter stone versus polyp. No evidence of acute cholecystitis. Pancreas not well visualized. DATA REPOSITORY:
[2020-06-13] MEDS: diazePAM 5 MG TAB PO ×2 (07:27→11:27)
[2020-06-13] MEDS: Albuterol HFA 8 GM 60 PUFF INH IH ×2 (07:55→11:20)
--- NOTE | 2020-06-13 08:23 | DI.US_ITS ---
APPROVED REPORT EXAM: Comprehensive 2D, Doppler, and color-flow Echocardiogram Patient Location: In-Patient Room/Bed: 212 Scalper Operator: Melanie Akbar RDCS (AE) Indications: Mechanical mitral valve in situ Other Information Study Quality: Adequate Conclusion Normal left ventricular wall thickness and chamber size. Estimated ejection fraction is 55 to 60%. There are no segmental wall motion abnormalities Normal right ventricular size and systolic function Left atrium is moderately dilated. The right atrium is normal in size Trileaflet aortic valve without regurgitation or stenosis There is a mechanical mitral valve prosthesis. No mitral regurgitation seen Structurally normal tricuspid valve with trace regurgitation. Unable to assess right ventricular sys tolic pressure Structurally normal pulmonic valve with trace regurgitation Wall motion Left Ventricle The left ventricle is normal size. The left ventricular systolic function is normal. The left ventric ular ejection fraction is within the normal range. There is normal left ventricular wall thickness. U nable to assess LV wall thickness. Borderline concentric left ventricular hypertrophy. Mild concentri c left ventricular hypertrophy. There is normal LV segmental wall motion. There is no ventricular sep darlene defect visualized. LVEF is 55-60%. Right Ventricle The right ventricle is normal size. The right ventricular systolic function is normal. Atria Left atrium is moderately dilated. The right atrium size is normal. The interatrial septum is intact with no evidence for an atrial septal defect. Aortic Valve The aortic valve is normal in structure. There is no aortic valvular stenosis. No aortic regurgitatio n is present. The prosthetic aortic valve is not well visualized. Bioprosthetic aortic valve is prese nt. Mechanical aortic valve is present. Mitral Valve No evidence of mitral valve stenosis. There is no mitral valve regurgitation noted. Mechanical prosth etic mitral valve is present. Tricuspid Valve The tricuspid valve is normal in structure. There is no tricuspid valve stenosis. Trace tricuspid reg urgitation. Unable to assess PA pressure. Pulmonic Valve The pulmonary valve is normal in structure. There is no pulmonic valvular stenosis. Trace pulmonic re gurgitation. Great Vessels The aortic root is normal in size. The ascending aorta is normal in size. Aortic arch is not well vis ualized. IVC is normal in size and collapses >50% with inspiration. Pericardium There is no pericardial effusion. 2D Dimensions IVSD d PLAX 1.14 cm M: 0.6-1.2 LV Vol A2C d MOD 138.3 mL LVPW d PLAX 1.19 cm M: 0.6 - 1.2 LV Vol A4C d MOD 140.8 mL LVID d PLAX 5.77 cm M: 4.2 - 5.8 LA vol/ BSA A4C s A-L 26.6 mL/m2 LVDs 4.30 cm M: 2.5 - 4.0 LA Area A4C s MOD 19.96 cm2 Ao Root d 3.15 cm M: 3.1 - 3.7 LV EF A4C MOD 50.7 % RA Area A4C 19.38 cm2 LV EF A2C MOD 49.0 % RA Vol/ BSA A4C s A-L 28.5 mL/m2 LV EF Biplane MOD 52.1 % Ao Asc Diam d 3.38 cm M: 2.6 - 3.4 SV 76.14 mL LV EF Teichholz 48.8 % SV Index 36.64 mL/m2 LVEF (Isaacs's) 52.13 % M: 52 - 72 LV Volume 108.18 mL M: 62 - 150 LV Volume Index 52.00 mL/m2 M: 34 - 74 LV Vol Biplane MOD 146.1 mL FS 25.00 % M-Mode TAPSE 1.70 cm (M/F) >1.7 LV Diastology E/A Ratio 0.9 MV E Vmax 1.59 (0.4-1.3 m/s) MV A Vmax 1.70 (0.4-1.3 m/s) MV E/A Ratio 0.92 Aortic Valve LVOT Area 3.65 cm2 AoV Area Vmax 2.39 cm2 LVOT Vmax 0.85 m/s AoV Area/ BSA (Vmax) 1.15 cm2/m2 LVOT Mean Delfin. 0.56 m/s DENISE Mean Delfin. 2.25 cm2 LVOT Peak Grad 2.9 mmHg DENISE Mean Delfin. Index 1.08 cm2/m2 LVOT Mean Grad 1.5 mmHg LVOT VTI 0.158 m LVOT Diam s 2.15 cm AoV Vmax 1.30 m/s Velocity Ratio 0.65 AoV Mean Delfin. 0.91 m/s AoV Peak Grad 6.7 mmHg LVOT SV 57.79 mL AoV Mean Grad 3.6 mmHg AoV VTI 0.245 m AoV Area VTI 2.36 cm2 AoV Area/ BSA (VTI) 1.14 cm/m2 Mitral Valve MV DT 389 (160-240 msec) MV PHT 113 msec MV Area PHT 1.95 cm2 MV VTI 0.515 m MV VTI Annulus 0.534 m MV Area VTI 1.17 (4.0-6.0 cm2) Pulmonary Valve PV Vmax 1.02 (0.5-1.5 m/s) RVOT Peak Gr. 1.56 mmHg PV Peak Grad 4.1 mmHg RVOT Mean Gr. 0.80 mmHg PV Mean Grad 2.1 mmHg RVOT VTI 0.122 m PV VTI 0.194 m RVOT Vmax 0.62 m/s
[2020-06-13 09:01] VITALS: BP 141/94; PULSE 79; RESP 19; TEMP 36; O2SAT 95
[2020-06-13] MEDS: Folic Acid 1 MG TAB PO (09:08)
[2020-06-13] MEDS: Doxycycline Hyclate 100 MG CAP PO (09:08)
[2020-06-13] MEDS: Sertraline 50 MG TAB 200 MG PO (09:08)
[2020-06-13] MEDS: Gabapentin 600 MG TAB PO ×2 (09:08→13:06)
[2020-06-13] MEDS: Atorvastatin 10 MG TAB PO (09:09)
[2020-06-13] MEDS: Multivitamin TAB 1 TAB PO (09:09)
[2020-06-13] MEDS: predniSONE 20 MG TAB 40 MG PO (09:10)
[2020-06-13] MEDS: Metoprolol CR 50 MG TABCR PO (09:10)
[2020-06-13] MEDS: Acamprosate 333 MG TABCR 666 MG PO ×2 (09:10→13:06)
[2020-06-13] MEDS: Thiamine 100 MG TAB PO (09:10)
[2020-06-13] MEDS: Nicotine 21 MG/24 HR PATCH TD (09:11)
[2020-06-13] MEDS: Buprenorphine/Naloxone 8 mg/2 mg FILM 1 EACH SL (09:11)
[2020-06-13] MEDS: Cyanocobalamin 500 MCG TAB PO (09:11)
--- NOTE | 2020-06-13 10:36 | W.NUTRFU ---
Date of service: 06/13/20 Time of Service: 10:36 Nutritional Follow up NOTE: Jose completing 100% of Heart Healthy Meals despite continued elevated lipase of 989. No complaints of abdominal pain. Provided education on diet s/p pancreatitis and contact info if needed. To be d/c later today. Time Spent in Nutritional Counseling and Treatment: 10 min
[2020-06-13 11:09] LABS: INR 1.3 (0.9-1.1); Prothrombin Time 12.7 sec (9.3-11.0)
[2020-06-13] MEDS: Enoxaparin 100 MG/ML SYR 90 MG SC (11:23)
--- NOTE | 2020-06-13 14:07 | DSE_ITS ---
Date of service: 06/13/20 Time of Service: 14:07 DS: Diagnosis Discharge Diagnosis (1) Alcohol withdrawal: Status: Resolved (2) Subtherapeutic international normalized ratio (INR): Status: Acute (3) Asthma: Status: Chronic (4) Alcoholic pancreatitis: Status: Resolved (5) Opioid dependence: Status: Chronic Discharge Plan Disposition Patient Disposition: HOME Condition: Good Discharge Details Reason For Visit: ALCOHOL WITHDRAWAL Admit Date/Time: 06/09/20 12:01 Admit Provider: Kaila Baptiste Attending Provider: Kaila Baptiste Primary Care Provider: [facility] Hospital Course: 40-year-old male with past medical history of chronic alcohol abuse with history of previous severe alcohol withdrawal including DTs who also has a history of mechanical mitral valve replacement chronically anticoagulated with warfarin, essential hypertension, hyperlipidemia, opioid dependence on Suboxone treatment through [facility] presented the emergency department on June 09, 2020 requesting go to [facility] for treatment of his alcohol abuse. His CIWA score the emergency department was high at 27 he was treated with IV diazepam. Patient admits he usually drinks a half a gallon of vodka per day but as the patient become homeless and last few days he had run out of vodka had not anything to drink other than a couple of beers on the morning prior to admission. His withdrawal symptoms include anxiety and tremors and tingling sensation throughout his entire body but no actual seizures. In the emergency department he was treated with IV diazepam but also given 260 mg of phenobarbital which had immediate effect of relieving his tachycardia nausea and anxiety. He was admitted to the intensive care unit for continued parenteral phenobarbital treatment of his acute alcohol withdrawal. His acute alcohol withdrawal was treated with IV fluids IV, antiemetics, parenteral and then subsequently oral multivitamins and magnesium and thiamine as well as parenteral phenobarbital and a dose of 130-260 mg IV push every 30 minutes to maintain a RASS scale of 0 to -1. He was found to be subtherapeutic on his warfarin with an INR 1.0. He was placed on Lovenox at 1 mg/kg subcutaneously every 12 hours as bridge therapy while his warfarin dose was resumed at 15 mg nightly which should see his usual dose. For his opioid use disorder he was maintained on his usual dose of Suboxone 8 mg sublingual film. Patient did require periodic dosing with his phenobarbital to maintain a RASS scale of 0 to -1. Patient did require some additional oral Valium to help with his anxiety associated with his chronic generalized anxiety disorder. His laboratory work-up on admission included an elevated lipase and initially the patient was made n.p.o. However over the weekend of June 11 and patient's nausea and vomiting abdominal discomfort improved and he requested food. In spite of improvement of his initial symptoms of pancreatitis his lipase still remain mildly elevated at 800-900. In spite of the persistently elevated lipase the patient tolerated a regular diet with no nausea or vomiting or abdominal pain. On SaturdayJune 13, 2020 patient underwent abdominal ultrasound imaging. This demonstrated fatty liver and hepatomegaly. Gallbladder showed borderline gallbladder wall thickening but no pericholecystic fluid. Patient is small gallstone versus a polyp but no gallbladder distention. Tim sign was negative. Pancreas was not well seen due to bowel gas. Echocardiogram was performed at the request of the admitting hospitalist to evaluate his mechanical mitral valve. This was completed on the morning of June 13, 2020. Left ventricular size and function was normal. Ejection fraction 55 to 60%. RV size and systolic function was normal. He has moderate left atrial enlargement. Aortic valve was without regurgitation or stenosis. Mechanical mitral valve showed no regurgitation. Tricuspid valve was structurally normal with trace regurgitation. Pulmonic valve had trace regurgitation. At the time of discharge his INR was increasing but was still not therapeutic. INR was 1.3 on the day of discharge with a prothrombin time of 12.7. He was given a prescription for Lovenox 90 mg subcutaneously every 12 hours to be continued for at least the next week until his INR is therapeutic at a level of greater than 2.8 for 2 consecutive days. I told him his goal should be an INR of around 3 upwards to 3.5. During his hospital stay peripheral IV in his right forearm had become thrombosed and suspicious for superficial cellulitis. He was started on doxycycline 100 mg p.o. BID which he will continue for 7 days. Patient was agreeable to going on acamprosate to help with maintaining abstinence from alcohol. Home Meds and New Rx's Prescriptions: New acamprosate 333 mg Tablet,Delayed Release (Dr/Ec) 666 mg PO TID Qty: 90 RF: 0 doxycycline hyclate 100 mg Capsule 100 mg PO BID Qty: 14 RF: 0 folic acid 1 mg Tablet 1 mg PO DAILY Qty: 30 RF: 0 multivitamin [Multiple Vitamins] Tablet 1 tab PO DAILY Qty: 30 RF: 0 cyanocobalamin (vitamin B-12) [Vitamin B-12] 500 mcg Tablet 500 mcg PO DAILY Qty: 30 RF: 0 thiamine mononitrate (vit B1) [Vitamin B-1 (mononitrate)] 100 mg Tablet 100 mg PO DAILY Qty: 30 RF: 0 enoxaparin 100 mg/mL Syringe 90 mg subcut Q12H Qty: 20 RF: 0 Continued sertraline 100 MG tablet 150 mg PO DAILY RF: 0 albuterol sulfate [ProAir HFA] 200 PUFF/INH HFA aerosol inhaler 2 puff Inhalation Q4H PRN PRNQty: 1 RF: 0 Narcan 4 MG spray,non-aerosol 4 mg NS DIRECTED Qty: 2 RF: 0 atorvastatin 10 mg Tablet 10 mg PO DAILY RF: 0 metoprolol succinate 50 mg Tablet Extended Release 24 Hr 50 mg PO DAILY RF: 0 fluticasone propionate 50 mcg/actuation [place],Suspension 1 spray INTRANASAL DAILY RF: 0 buprenorphine-naloxone [Suboxone] 4-1 mg Film 16 film Sublingual DAILY AM RF: 0 gabapentin 600 mg Tablet 1,200 mg PO TID RF: 0 warfarin 10 MG tablet 15 mg PO DAILY Qty: 60 RF: 0 Discharge Instructions Instructions: Cellulitis (DC), Alcohol Withdrawal (DC) Stand Alone Forms: Nursing Discharge Form Referrals: Radha Tracey [Primary Care Provider] - (call the office for follow up in the next week. get INR in the next 2 days) Activity:: Activity as Tolerated Equipment/Supplies:: No Equipment Needed Diet:: Normal Diet Discharge Orders Discharge Orders: Discharge Order (Routine); Ordered 06/13/20 Ordered By: Jose Pink Other Ambulatory Orders: Prothrombin Time (Routine) Timeframe: 2 Days Facility: [facility] - Location: Laboratory Outpatient Ordered By: Jose Pink Discharge Data Discharge Date/Time-TO BE ENTERED AT DEPARTURE: 06/13/20 14:16 DS: Summary Status at Discharge Functional status at discharge: independent ambulation Overall status at discharge: patient is back to baseline Mental Status: mental status grossly normal Speech and Movement: speech and movement normal Mood: congruent mood Affect: normal affect Exam Psych Mental Status: mental status grossly normal Speech and Movement: speech and movement normal Mood: congruent mood Affect: normal affect DS: Data Vitals/I&O Vitals and I&O: Vital Signs Temperature 36.0 C L 06/13/20 09:01 Temperature Source Tympanic 06/13/20 09:01 Pulse 79 06/13/20 09:01 Pulse Rhythm Regular 06/13/20 08:51 Pulse 81 06/12/20 10:01 Respiratory Rate 19 06/13/20 09:01 Respiratory Effort 06/13/20 08:51 Respiratory Depth Normal 06/13/20 08:51 Respiratory Pattern Normal 06/13/20 08:51 Blood Pressure 141/94 H 06/13/20 09:01 Blood Pressure Mean 114 06/12/20 10:09 Blood Pressure Position Supine 06/11/20 23:24 Pulse Oximetry 95 06/13/20 09:01 Oxygen Delivery Method Room Air 06/13/20 09:01 Oxygen Flow Rate 0 06/13/20 09:01 Pain Level 0 06/13/20 03:40 Comment 06/10/20 14:02 Intake & Output 06/12/20 06/13/20 06/13/20 23:59 11:59 23:59 Intake Total 1510 / 2510 480 / 480 Balance 1510 / 935 480 / 480 Weight 92.7 kg Intake: Oral 1510 / 1510 480 / 480 Other: Urine Color Yellow Yellow Urine Appearance Clear Clear Urine Odor Normal None Comment pt voiding independently in bathroom. pt reports normal looking urine with normal odor. urine not visualized by RN pt reports voiding in toilet Voiding Methods Toilet Toilet Data Completed and Pending Labs on day of discharge: Labs from last 24 hours 06/13/20 10:34 PT 12.7 H INR 1.3 H Preliminary micro results at discharge 06/11/20 20:30 Skin Culture - Preliminary Arm - Right Normal [facility] Medical History (Updated 06/13/20 @ 14:08 by Jose Pink) Alcohol abuse Asthma Bipolar affective disorder Brain abscess CVA (cerebral vascular accident) DIC (disseminated intravascular coagulation) Endocarditis due to Staphylococcus History of intravenous drug abuse HTN (hypertension) Opioid dependence PTSD (post-traumatic stress disorder) Septic arterial embolism Surgical History (Updated 06/09/20 @ 18:12 by Kaila Baptiste MD) H/O mitral valve replacement with mechanical valve [place] [facility] [place] 2.5-3.5 History of appendectomy 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
--- NOTE | 2020-06-13 15:50 | PDOC.CMDIS ---
- If Service Date Differs Date of service: 06/13/20 Time of Service: 15:50 LACE Index Scoring Tool - Questions: Length of Stay (in days): 4 - 6 Acuity (Admit via E.D.?): Yes Comorbidities: Cerebrovascular Disease E.D. Visits: 9 - Answers: Total Score: 12 Risk of Readmission: High Risk Care Management Discharge Reason for Hospitalization: ETOH withdrawal Discharge Plan: Marlon will be discharged today with follow up from the family coach in the community. He no longer is interested in receiving treatment from [facility]. He will communicate with Economic services in order to obtain a hotel voucher, as he is currently homeless. His father will pick him up via private vehicle when ready. He is happy to be discharged today, and states that he feels ready to be back in the community. Patient/Family Education Needs: Review discharge instructions regarding activity and medications, discussion of self care needs including ask me three.
== END 2020-06-13 14:16 | disposition home or self-care (01) | DRG 896 ==
LOC: ER 12:28 → ICU 16:22 → MS 06-12 12:13
PROVIDERS: Admitting Provider Internal Medicine; Emergency Provider Registered Nurse Emergency; PCP Family Medicine; Visit Provider Internal Medicine
DX: F10.139 Alcohol abuse with withdrawal, unspecified (principal); K85.20 Alcohol induced acute pancreatitis without necrosis or infection; F11.20 Opioid dependence, uncomplicated; I50.9 Heart failure, unspecified; Z95.2 Presence of prosthetic heart valve; J45.909 Unspecified asthma, uncomplicated; Z79.01 Long term (current) use of anticoagulants; I11.0 Hypertensive heart disease with heart failure; E78.5 Hyperlipidemia, unspecified; Z59.0 Homelessness; F31.9 Bipolar disorder, unspecified; Z86.73 Personal history of transient ischemic attack (TIA), and cerebral infarction without residual deficits; F43.10 Post-traumatic stress disorder, unspecified; Z86.718 Personal history of other venous thrombosis and embolism; Z90.81 Acquired absence of spleen; F17.210 Nicotine dependence, cigarettes, uncomplicated; F41.1 Generalized anxiety disorder
CPT/HCPCS: 36415; 80048; 80053; 80076; 80307; 83690; 93005; 94640; 96365; 96366; 96372; 96375; 99233; 99238; 99285; 99291; U0003; 71045; 76700; 80320; 80329; 81003; 81015; 82607; 82746; 83735; 83880; 84443; 85025; 85610; 87070; 93010; 93306; J1650; J2560; J3360; J3420; J3475; J3490; J7512; J7620